=== PATIENT | female | born 1955 | race Caucasian/White ===

== ENCOUNTER 2017-12-19 13:53 | Emergency (ER) | payer OTHER, SELFPAY ==
[2017-12-19] VITALS (7 sets, daily range): BP systolic 117–145; BP diastolic 50–85; PULSE 82–99; RESP 9–19; TEMP 37.1; O2SAT 95–97
--- NOTE | 2017-12-19 14:24 | DI.REPORT_ITS ---
SYMPTOMS/DIAGNOSIS: TRANSIENT CHEST PAIN AT REHAB CHEST X-RAY, FRONTAL AND LATERAL VIEWS: The heart is normal in size. The lungs are clear. The mediastinal structures and pleura appear intact. IMPRESSION: Normal chest.
--- NOTE | 2017-12-19 14:25 | ED.GENADUL ---
Disposition Clinical Impression: Atypical chest pain Disposition: HOME Condition: Good Medical Decision Making - EKG Data -: EKG Interpreted by Me EKG shows normal: sinus rhythm 12/19/17 14:28 Sinus rhythm, rate approximately 90-100. ST segments are unremarkable - Radiology Data Radiology results: report reviewed, image reviewed - Medical Decision Making 62-year-old female presents with 20-30 seconds of anterior chest discomfort that began at approximately 11 AM during rehabilitation. It improved on its own has yet to recur. She has been recovering from right total knee arthroplasty. Differential diagnosis includes colonic gas in the transverse colon, unusual presentation myocardial infarction, atypical chest pain. Do not feel that there is significant evidence of pulmonary embolism given the very brief nature of the event. Patient placed on wire brush maker and unremarkable screening EKG obtained. Unremarkable CBC with white count 8, hematocrit 36, platelets 284, Sodium 138, potassium 3.7, chloride 101, bicarb 25, BUN 14, creatinine 0.6, unremarkable LFTs, troponin negative. Chest x-ray negative. Patient observed over approximate 2 hours time without recurrence of discomfort. Do not feel there is evidence to pursue further workup of chest pathology. She stable for discharge home and to return to her total knee replacement rehabilitation. History of Present Illness - General Chief complaint: Chest Pain Stated complaint: CHEST PAIN Time Seen by Provider: 12/19/17 13:57 Source: patient, family, RN notes reviewed Mode of arrival: wheelchair Limitations: no limitations - History of Present Illness Initial comments: Chest pain: 62-year-old female who is recovering from total knee replacement on December 11. She was at rehabilitation today and had severe leg pain due to manipulation of the therapist. She separately states that she developed 20-30 seconds of the abrupt onset of mild to moderate cramping discomfort across her lower chest. It resolved completely on its own. No shortness of breath. She denied any persistent symptoms. She has not had any other complaints. She has recently weaned off of narcotics for postoperative pain. She is not any new lower extremity pain or swelling. - Related Data Levothyroxine [Levothroid] 25 mcg PO DAILY tab-cap 11/28/17 Losartan/Hctz [Hyzaar 50-12.5] 1 each PO DAILY 11/28/17 Cholecalciferol (Vitamin D3) [Vitamin D3] 4,000 unit PO DAILY 12/06/17 Vit #108/Iron/FA [ One Tablet] 1 each PO DAILY 12/06/17 Celecoxib [Celebrex] 200 mg PO BID #60 capsule 12/14/17 Hydrocodone Bit/Acetaminophen [Hydrocodon-Acetaminophen 5-325] 1 tab PO Q6H PRN PRN #30 tablet 12/14/17 Allergies Allergy/AdvReac Type Severity Reaction Status Date / Time lisinopril AdvReac Mild COUGH Unverified 12/11/17 06:03 Review of Systems Other: 8 systems reviewed, otherwise negative Past Medical History - Past Medical History Hypertension, total knee arthroplasty right General Exam - General Limitations: no limitations General appearance: alert, in no apparent distress - Head Head exam: Present: atraumatic, normocephalic - Eye Eye exam: Present: normal apperance, PERRL - Neck Neck exam: Present: normal inspection, full ROM - Respiratory Respiratory exam: Present: normal lung sounds bilaterally. Absent: respiratory distress, chest wall tenderness - Cardiovascular Cardiovascular Exam: Present: regular rate, normal rhythm - GI/Abdominal GI/Abdominal exam: Present: soft. Absent: distended, tenderness - Extremities Exam Extremities exam: Present: normal inspection, normal capillary refill, other (Right knee with anterior vertically oriented healing surgical incision.) - Neurological Exam Neurological exam: Present: alert, oriented X3 - Psychiatric Psychiatric exam: Present: normal affect, normal mood - Skin Skin exam: Present: warm, dry, intact Course Vital Signs - 24 hr 12/19/17 14:05 Temperature 37.1 C Pulse 99 H Respiratory 12 Rate Blood Pressure 145/85 Pulse Oximetry 97
[2017-12-19] MEDS: Normal Saline 1,000 ML 150 ML IV (14:52)
[2017-12-19 14:55] LABS: Abs Immature Grans 0.05 k/cumm (0.0-0.09); Absolute Basophil Count 0.02 k/cumm (0.0-0.2); Absolute Eosinophil Count 0.14 k/cumm (0.0-0.7); Absolute Lymphocyte Count 1.86 k/cumm (1.2-3.4); Absolute Monocyte Count 0.54 k/cumm (0.11-0.7); Basophils % 0.2; Eosinophils % 1.7; HCT 36.5 % (36.0-46.0); HGB 12.3 g/dL (12.0-15.5); Immature Grans % 0.6; Lymphocytes % 23.2; Mean Corp. HGB Concentration 33.7 g/dL (32.0-36.0); Mean Corpuscular Hemoglobin 30.4 pg (27.0-33.0); Mean Corpuscular Volume 90.1 fL (80-95); Mean Platelet Volume 9.2 fL (8.0-11.0); Monocytes % 6.7; Neutrophils % 67.6; Platelet Count 284 x1000/uL (130-400); RBC 4.05 m/cumm (4.00-5.20); RBC Distribution Width 13.5 % (11.7-14.6); White Blood Cell Count 8.01 k/cumm (4.4-10.8)
[2017-12-19 15:17] LABS: ALT 47 U/L (12-78); AST 26 U/L (15-37); Albumin 3.4 g/dL (3.4-5.0); Alkaline Phosphatase 96 U/L (46-116); Anion Gap 11.3 mmol/L (3-11); BUN 14 mg/dL (7-18); Bilirubin, Total 1.1 mg/dL (0.2-1.0); CO2 25.7 mmol/L (21.0-32.0); CREATININE 0.69 mg/dL (0.55-1.02); Calcium 9.1 mg/dL (8.5-10.1); Chloride 101 mmol/L (98-107); Glucose 102 mg/dL (70-100); Magnesium 2.3 mg/dL (1.8-2.4); Potassium 3.7 mmol/L (3.5-5.1); Sodium 138 mmol/L (136-145); Total Protein 7.3 g/dL (6.4-8.2); Troponin I < 0.02 ng/mL (0.00-0.06)
== END 2017-12-19 15:58 | disposition home or self-care (01) ==
PROVIDERS: Emergency Provider Emergency Medicine; PCP Internal Medicine
DX: R07.89 Other chest pain (principal); Z96.651 Presence of right artificial knee joint; I10 Essential (primary) hypertension
CPT/HCPCS: 80053; 93005; 96360; 99285; 71046; 83735; 84484; 85025; 93010; 99284

== ENCOUNTER 2018-03-22 10:35 | Outpatient (CLI) | payer OTHER, SELFPAY ==
--- NOTE | 2018-03-22 10:28 | DI.RAD_ITS ---
SYMPTOMS/DIAGNOSIS: RIGHT ANKLE PAIN RIGHT ANKLE: There is mild generalized soft tissue swelling. The bony structures are normally mineralized. There is no evidence of a fracture or dislocation. The mortise joint is well maintained. There are mild degenerative changes involving the talonavicular and calcaneocuboid joints, nil else.
== END 2018-03-22 10:55 ==
PROVIDERS: PCP Internal Medicine; Visit Provider Physician Assistant
DX: M25.571 Pain in right ankle and joints of right foot (principal); M79.89 Other specified soft tissue disorders; M19.071 Primary osteoarthritis, right ankle and foot
CPT/HCPCS: 73610

== ENCOUNTER 2018-09-03 08:16 | Outpatient (REF) | payer OTHER, SELFPAY ==
[2018-09-03 19:42] LABS: BUN 17 mg/dL (7-18); CREATININE 0.73 mg/dL (0.55-1.02); Calcium 9.4 mg/dL (8.5-10.1); Chloride 107 mmol/L (98-107); Cholesterol 201 mg/dL (50-200); Glucose 104 mg/dL (70-100); HDL Cholesterol 46 mg/dL (40-60); LDL CHOLESTEROL 132 mg/dL (<100); Potassium 4.1 mmol/L (3.5-5.1); Sodium 142 mmol/L (136-145); TSH 2.44 uIU/mL (0.358-3.74); Triglyceride 96 mg/dL (30-150)
[2018-09-03 19:59] LABS: FREE T4 0.99 ng/dL (0.76-1.46)
[2018-09-04 17:47] LABS: T3, Total 127 ng/dl (97-169)
== END 2018-09-03 08:36 ==
LOC: NCHCN 08:16
PROVIDERS: PCP Internal Medicine; Visit Provider Nurse Practitioner Family
DX: I10 Essential (primary) hypertension (principal); E03.9 Hypothyroidism, unspecified; Z13.220 Encounter for screening for lipoid disorders
CPT/HCPCS: 80048; 80061; 83721; 84439; 84443; 84480

== ENCOUNTER 2018-09-13 00:51 | Outpatient (CLI) | payer OTHER, SELFPAY ==
--- NOTE | 2018-09-13 10:34 | DI.MAMMO_ITS ---
SYMPTOMS/DIAGNOSIS: SCREENING, Z12.39 MAMMOGRAM: Mammograms were interpreted according to the usual protocol including computer analysis with CAD system, tomosynthesis and C view imaging. The breasts are of moderate density with fairly symmetrical distribution of fibroglandular tissue. No dominant mass or clumped microcalcification is identified in either breast. Comparison with previous examination of 2003 shows no gross interval change in appearance allowing for differences in technique. CONCLUSION: No specific evidence of malignancy at this time. Routine screening examinations are suggested at yearly intervals due to the family history of breast carcinoma. Category I. Breast density Category B. MQSA ASSESSMENT OF FINDINGS: Negative. Category 1. Patient will receive a letter notifying them of these results. BI-RADS category B. There are scattered areas of fibroglandular density.
== END 2018-09-13 01:11 ==
PROVIDERS: PCP Internal Medicine; Visit Provider Nurse Practitioner Family
DX: Z12.31 Encounter for screening mammogram for malignant neoplasm of breast (principal); Z80.3 Family history of malignant neoplasm of breast
CPT/HCPCS: 77063; 77067

== ENCOUNTER 2018-10-29 06:13 | Day surgery (SDC) | payer OTHER, SELFPAY ==
[2018-10-29 06:20] VITALS: BP 135/72; PULSE 90; RESP 18; TEMP 36.7; O2SAT 98
--- NOTE | 2018-10-29 06:36 | COLE_ITS ---
Date of service: 10/29/18 Time of Service: 07:24 Colonoscopy Report Date of procedure: 10/29/18 Pre-op diagnosis general: Colon Cancer Screening Post-op diagnosis procedure note: other (Ascending colon mass, multiple polyps, diverticulosis) Procedure: Colonoscopy with bx and polypectomy Surgeon: Kellie Pisano Anesthesia proc note operative: other (General/ ASA 2/ Jimenez Sims, V[place]) Estimated blood loss (mL): 10 Pathology: other (Bx ascending mass, transverse x3, descending, sigmoid and rectal polyp) Complications: None Disposition: same day Indications: Mrs. Gastelum is a pleasant 63 year old female seen in the office for a colonoscopy. This will be her first. There is no family history of colon Cancer. Risks, benefits and complications have been reviewed. Complications include but are not limited to bleeding, pain, perforation, missed small lesion/polyp, sore throat, aspiration and adverse reaction to the medications. Questions were entertained and answered to their satisfaction and they wished to proceed. No guarantees were given or implied. Prep: Miralax/Dulcolax Procedure Start Time: 07:24 Procedure End Time: 08:34 Retraction Time: 56 minutes Findings: Ascending colon mass which was biopsied and tattooed. Multiple other polyps Rangel-diverticulosis Procedure Description: After informed consent was obtained the patient was taken to the procedure room and placed in a left decubitous position. Monitors were a pplied and a time out was done. The patients name, date of , procedure, allergies to medications and metal in their body was reviewed. The patient was then sedated. Once sedated and comfortable a rectal exam was done. External exam was normal. Internal exam revealed a normal sphincter tone and no palpable masses. The scope was then introduced and retro-flexed. No internal hemorrhoids were identified. The scope was then advanced to the cecum without difficulty. The TI and appendiceal orifice were identified. The prep was adquate. The scope was then slowly retracted over 56 minutes back into the rectum. In the ascending colon there was a mass noted. Biopsies of the mass were done with a hot snare and a hot forceps. Transverse polyps were removed x3 with hot forceps and hot snare. Descending, sigmoid and rectal polyps were removed with cold forceps. Rangel-diverticulosis was noted. The scope was removed and the patient was woken up and taken back to Same day surgery in stable condition. The patient tolerated the procedure well and there were no immediate complications. Follow up: I was unable to remove the mass safely so patient will need a Right hemicolectomy once I have the pathology results.
--- NOTE | 2018-10-29 06:36 | W.PM.DSUDISC ---
Discharge Plan Disposition Patient Disposition: HOME Condition: Good Discharge Details Reason For Visit: Colon Cancer Screening Attending Provider: Kellie Pisano Primary Care Provider: Jonatan Garza Home Meds and New Rx's Prescriptions: Continued vitamin B complex capsule 1 cap PO DAILY RF: 0 codeine-guaifenesin 10-100 mg/5 mL liquid 5 ml PO ONCE PRNRF: 0 aspirin [Adult Low Dose Aspirin] 81 mg tablet,delayed release (DR/EC) 162 mg PO DAILY RF: 0 levothyroxine 25 MCG tablet 25 mcg PO HS RF: 0 losartan-hydrochlorothiazide 1 EACH tablet 1 ea PO DAILY RF: 0 ascorbic acid (vitamin C) [Vitamin C] 1,000 mg Tablet 1 mg PO DAILY RF: 0 Whole Food Vitamin 1 tab PO DAILY RF: 0 Vitamin D3 4,000 UNIT capsule 4,000 unit PO DAILY RF: 0 Discontinued polyethylene glycol 3350 17 gram/dose powder 238 g PO ONCE Qty: 238 RF: 0 bisacodyl [Dulcolax (bisacodyl)] 5 mg tablet,delayed release (DR/EC) 5 mg PO ONCE Qty: 4 RF: 0 Discharge Instructions Instructions: Colonoscopy (DC), Diverticulosis (DC), Colorectal Polyps (GEN) Additional Instructions: Findings: Mass in the ascending colon Polyps in the transverse, descending, sigmoid colon and rectum Diverticulosis Follow up:2 weeks in the office Please call if you develop: fevers >101.5 Nausea or Vomiting Abdominal pain that is not transient DAY SURGERY UNIT POST COLONOSCOPY INSTRUCTIONS 1. Because there will be medication in your system for the next 24 hours, you may feel a little sleepy. Your coordination will be affected. Therefore: a. Do not drive or operate dangerous equipment for 24 hours. b. Do not drink alcohol beverages for 24 hours (not even beer). c. Plan to go home and rest for the day. 2. Generally there are no restrictions on your activity after a day or so has gone by, but you may feel a bit fatigued for a few days. 3 After you arrive home you may have a light meal and return to a normal diet as you can tolerate it without feeling sick to your stomach. 4. After surgery, you may feel pain or discomfort. This should be only transient, but if it persists please contact your doctor. 5. If there are any questions regarding the findings of your procedure, please feel free to contact your doctor. 6. If you are unable to contact your doctor with a problem, contact the hospital at [phone]. 7. Continue all your regular medications unless directed otherwise. I understand the above instructions and have no questions. Signature of Patient or Responsible Adult Escort Date/Time Name of Responsible Adult Escort Signature of Nurse Date/Time Referrals: Kellie Pisano MD [ [facility] STAFF PHYSICIAN] - 11/13/18 1:00 pm Activity:: Activity as Tolerated Diet:: High Fiber diet Discharge Orders Discharge Orders: Discharge Order (Routine); Ordered 10/29/18 Ordered By: Kellie Pisano DS: Diagnosis Discharge Diagnosis (1) S/P colonoscopy: Status: Acute (2) Colorectal polyps: Status: Acute (3) Diverticulosis: Status: Acute
[2018-10-29] MEDS: Lactated Ringers 1,000 ML 80 ML IV (06:47)
[2018-10-29] MEDS: Midazolam 2 MG/2 ML VIAL (07:20)
--- NOTE | 2018-10-29 07:30 | BOWEL_PTH ---
PATIENT: aMvis Gastelum LOC: [facility] U#:[id number] AGE/SX: 63/F ROOM: RE10/29/[address]: Kellie Pisano MD : 1955 BED: DIS: 10/29/2018 SPEC #: [id number] RECD: 10/29/18 12:51 STATUS: QUOC RE #: [id number] RONALDO: 10/29/18 07:[address]: Kellie Pisano DEPT: Surgical Specimen RECD BY: Lolis Bronson ENTERED: 10/29/18 12:52 SP TYPE: Bowel OTHR DR: Jonatan Garza Tissues: 1 - BIOPSY BOWEL 2 - BIOPSY BOWEL 3 - BIOPSY BOWEL 4 - BIOPSY BOWEL 5 - BIOPSY BOWEL Procedures: GROSS AND MICRO LEVEL 4 IMMUNOPEROXIDASE STAIN Comments: [id number]
[2018-10-29] MEDS: Endoscopic Tattoo 5 ML SYR IJ (07:47)
[2018-10-29 09:10] VITALS: BP 145/90; PULSE 79; RESP 18; TEMP 35.8; O2SAT 98
== END 2018-10-29 09:58 | disposition home or self-care (01) ==
PROVIDERS: PCP Internal Medicine; Visit Provider Surgery
PROC: 0DJD8ZZ Inspection of Lower Intestinal Tract, Via Natural or Artificial Opening Endoscopic (ICD-10-PCS; CPT 45378; principal; 2018-10-29 07:30)
DX: C18.2 Malignant neoplasm of ascending colon (principal); Z12.11 Encounter for screening for malignant neoplasm of colon; D12.3 Benign neoplasm of transverse colon; D12.4 Benign neoplasm of descending colon; K63.5 Polyp of colon; K62.1 Rectal polyp; K57.30 Diverticulosis of large intestine without perforation or abscess without bleeding; I10 Essential (primary) hypertension
CPT/HCPCS: 45385; 45384; 45380; 88305; 88361; J2250

== ENCOUNTER 2018-11-05 08:05 | Outpatient (CLI) | payer OTHER, SELFPAY ==
--- NOTE | 2018-11-05 12:21 | DI.CT_ITS ---
SYMPTOM/DIAGNOSIS: NEWLY DIAGNOSED COLON CANCER, ASCENDING C18.9 CT CHEST, ABDOMEN AND PELVIS: Comparison is made with chest x-ray dated 19 December 2017 Images were performed from the clavicles through the ischial tuberosities after IV and oral contrast. CHEST CT: The lungs are clear. No pulmonary nodules, adenopathy, infiltrates or effusions seen. There is mild calcification of the aortic arch and coronary arteries. The heart size is normal. A hemangioma is noted in the T-5 vertebral body. There is a mild compression fracture of the superior end plate of T-11. No destructive bony lesions are seen. IMPRESSION: No evidence of metastatic disease. ABDOMEN AND PELVIC CT: The liver, gallbladder, spleen, adrenals and pancreas are unremarkable. There are a few tiny renal cysts. No adenopathy, free air or free fluid is seen. There is diverticulosis throughout the colon, greatest in the sigmoid. The appendix appears normal. There is a mass of the mid-ascending colon measuring 1 to 1.5 cm in diameter. There is no visible stranding in the surrounding fat. There is a tiny fatty containing umbilical hernia. There is calcification along the abdominal aorta and iliac arteries but no evidence of an aneurysm. No suspicious bony lesions are identified. The patient is status post hysterectomy. The bladder is unremarkable. IMPRESSION: Small mass in the ascending colon. There is no evidence of metastatic disease.
[2018-11-05 14:15] LABS: ALT 34 U/L (12-78); AST 24 U/L (15-37); Albumin 3.8 g/dL (3.4-5.0); Alkaline Phosphatase 98 U/L (46-116); Anion Gap 12.2 mmol/L (3-11); BUN 13 mg/dL (7-18); Bilirubin, Total 0.8 mg/dL (0.2-1.0); CO2 23.8 mmol/L (21.0-32.0); CREATININE 0.68 mg/dL (0.55-1.02); Calcium 9.7 mg/dL (8.5-10.1); Chloride 103 mmol/L (98-107); Glucose 98 mg/dL (70-100); HCT 43.2 % (36.0-46.0); HGB 14.4 g/dL (12.0-15.5); Mean Corp. HGB Concentration 33.3 g/dL (32.0-36.0); Mean Corpuscular Hemoglobin 29.4 pg (27.0-33.0); Mean Corpuscular Volume 88.3 fL (80-95); Mean Platelet Volume 9.9 fL (8.0-11.0); Platelet Count 286 x1000/uL (130-400); RBC 4.89 m/cumm (4.00-5.20); RBC Distribution Width 13.8 % (11.7-14.6); Sodium 139 mmol/L (136-145); Total Protein 7.5 g/dL (6.4-8.2); White Blood Cell Count 7.91 k/cumm (4.4-10.8)
[2018-11-05] MEDS: Omnipaque 350 MG/ML 100 ML BTL IJ (15:06)
[2018-11-05] MEDS: Omnipaque 350 MG/ML 50 ML BTL IJ (15:08)
[2018-11-05] MEDS: Normal Saline Flush 10 ML SYR IVP (15:09)
[2018-11-06 09:20] LABS: Prealbumin 22 mg/dL (20-40)
[2018-11-06 10:36] LABS: CEA 0.8 ng/ml
== END 2018-11-05 08:25 ==
PROVIDERS: PCP Internal Medicine; Visit Provider Surgery
DX: C18.9 Malignant neoplasm of colon, unspecified (principal); Z12.89 Encounter for screening for malignant neoplasm of other sites; M48.54XD Collapsed vertebra, not elsewhere classified, thoracic region, subsequent encounter for fracture with routine healing; K57.30 Diverticulosis of large intestine without perforation or abscess without bleeding; K42.9 Umbilical hernia without obstruction or gangrene
CPT/HCPCS: 74177; 80053; 85027; 71260; 82378; 84134; J3490; Q9967

== ENCOUNTER 2018-11-14 06:00 | Inpatient (IN) | payer OTHER, SELFPAY ==
[2018-11-14] VITALS (19 sets, daily range): BP systolic 96–131; BP diastolic 51–79; PULSE 60–96; RESP 9–18; TEMP 36.2–37; O2SAT 95–100
--- NOTE | 2018-11-14 06:19 | ROE_ITS ---
Date of service: 11/14/18 Time of Service: 13:04 Operative Note DATE OF PROCEDURE: 11/14/18 PRE-OP DIAGNOSIS: Ascending colon Cancer POST-OP DIAGNOSIS: same PROCEDURE: Laparoscopic Right hemicolectomy SURGEON: Kellie Pisano WORKFORCE MANAGEMENT CONSULTANT: Juli Mcqueen ANESTHESIA: GETA and spinal ESTIMATED BLOOD LOSS: 75 PATHOLOGY: other (Right colon) COMPLICATIONS: None Patient was transported to: PACU Patient's condition: stable Indications: Mrs. Gastelum is a pleasant 63 year old female who was diagnosed with ascending colon cancer a few weeks ago. CT scan showed no lymphadenopathy or sig ns of metastasis. CEA was normal. Laparoscopic Right hemicolectomy was discussed with patient. Risks, benefits and complications were reviewed. Complications include but are not limited to bleeding, infection, anastamotic leak, sepsis, UTI, injury to adjacent organs, Cardiac arrest, stroke and . Questions were entertained and answered to their satisfaction and they wished to proceed. No guarantees were given or implied. Findings: Small palpable cancer. Tattoo area noted. Healthy appearing liver. Procedure Description: After informed consent was obtained the patient was taken to the operating room and a spinal anesthetic was done. She was then placed in the supine position and was placed under general anesthesia and intubated without difficulty. An OG tube was placed. A second IV was placed. Her arms were then tucked next to her. A Covarrubias catheter was placed in a standard fashion. Next her abdomen was prepped and draped in a sterile surgical fashion from the xiphoid process to the suprapubic area and from the right to the left abdomen down to the bed. At this point a timeout was done and the patient's name, date of , allergies to medications, procedure to be done, DVT prophylaxis and antibiotic given were reviewed. Fire risk was assessed. The case was reviewed and special instrumentation was not required. A small 5 mm incision was made with an 11 blade just below the umbilicus. The skin was grasped with penetrating towel clamps on either side of the inci duy and a 5 mm port was placed under direct visualization without difficulty. The abdomen was then insufflated. 3 more ports were placed, one 5 mm port was placed just above the pubic symphysis. 1 was placed between the umbilicus and the xiphoid process in the left upper quadrant area. In 11 mm port was placed just below the xiphoid process. The a sending colon was then inspected and the tattooed area was identified. The right colon was then mobilized along the white line of Toldt. Once mobilized all the way to the hepatic flexure the omentum was moved away from the ascending colon. Some attachments were noted of the omentum to the area of the tattoo. The omentum was freed from its adhesions using a laparoscopic LigaSure dissector. The terminal ileum was identified and a small opening was created with a [place] dissector and the mesentery. Using a laparoscopic stapler the terminal ileum was transected. Using the LigaSure dissector the mesentery along the ascending colon was cauterized and cut all the way around the hepatic flexure. The lesser sac was entered and opened along the transverse colon. At this point the laparoscopic instruments were removed from the abdomen as well as the camera in the abdomen was deflated. The ports were removed and a 15 centimeter incision was made from just above the umbilicus through the 11 mm port site. Dissection was done through the subcutaneous tissue with cautery down to the fascia. I then placed my finger through the port site and swept along the fascia making sure that there was no bowel and the fascia was opened with cautery. The right side of the fascia was then retracted and the ascending colon was pulled through the wound a few more adhesions of mesentery were noted and these were transected using the LigaSure. I then felt for the middle colic artery and stapled the colon off just to the right of this palpable artery. The bowel was removed from the operating table and placed in formalin. The rest of the transverse colon was inspected it looked healthy and there was good blood supply to the stapled area. I noted some small amount of omentum that was adhered close to where the anastomosis was going to be and it was dissected away with the LigaSure. The stapled small bowel was then brought out through this incision and secured in a [id number] fashion with the transverse colon with 2 silk sutures. A small enterotomy was made on the small bowel as well as the transverse colon and using an 80 mm straight stapler a anastomosis was created between the 2 pieces of bowel. The enterotomy was c losed in 2 layers. The first layer was with 2-0 Vicryl second layer was with 3- 0 silk. The staple line was then buried with 2-0 silk pop-off sutures. The mesenteric defect was closed using 2-0 Vicryl suture. The bowel was then gently placed back into the abdominal cavity making sure that the mesentery was not twisted. The omentum was placed over the anastomosis. An instrument, sponge and needle count was done and was correct at this point. At this point the abdomen was irrigated with 2 L of warm normal saline. The fluid was suctioned back out until clear. The fascia was then grasped with [place]'s. The fascia was closed with two #1 Vicryl sutures in a running fashion. Two 5 mm ports were then placed back through the old incisions into the abdomen and the abdomen was insufflated. The camera was placed and a little bit of fluid was suctioned out of the pelvis. The bowel was inspected and looked normal and there was good peristalsis. The liver was inspected and looked normal. The gallbladder looked normal. The omentum was gently swept away and the anastomosis was noted in the right upper quadrant area. The mesentery did not look twisted. The anastomosis looked pink. The omentum was placed back over the anastomosis. At this point the camera was removed and the 2 5 mm ports were removed. A 5 mm incisions were closed with 4-0 Vicryl. The the subcutaneous tissue of the midline incision was reapproximated using 3-0 Vicryl. Prior to this Exparel was injected along the fascia. Once the subcutaneous tissue was reapproximated the dermis was closed with 4-0 Vicryl running suture. At this point the abdomen was cleaned and dried. Mastisol Steri-Strips were applied to all incisions. A second instrument, needle and sponge count was done and was correct. The OG tube was removed and the patient was woken up extubated and taken back to recovery in stable condition. There were no immediate complications.
[2018-11-14] MEDS: Celecoxib 200 MG CAP PO (06:30)
[2018-11-14] MEDS: ALVIMOPAN 12 MG CAP PO (06:30)
[2018-11-14] MEDS: Acetaminophen 500 MG TAB 1000 MG PO (06:30)
[2018-11-14] MEDS: Gabapentin 300 MG CAP PO (06:30)
[2018-11-14] MEDS: Normal Saline 1,000 ML 80 ML IV (06:53)
[2018-11-14] MEDS: fentaNYL 100 MCG/2 ML VIAL 15 MCG EP (07:35)
[2018-11-14] MEDS: Bupivacaine 0.25% Pres-Free 10 ML VIAL EP (07:35)
[2018-11-14] MEDS: Lactated Ringers 1,000 ML 30 ML IV (07:55)
[2018-11-14] MEDS: AMPICILLIN/SULBACTAM 3 GM in Normal Saline 100 ML IVPB (07:55)
--- NOTE | 2018-11-14 10:11 | BOWEL_PTH ---
PATIENT: Mavis Gastelum LOC: U#:[id number] AGE/SX: 63/F ROOM: 205 RE11/14/[address]: Kellie Pisano MD : 1955 BED: A DIS: 11/17/2018 SPEC #: [id number] RECD: 11/14/18 13:01 STATUS: QUOC REQ #: [id number] RONALDO: 11/14/18 10:[address]: Kellie Pisano DEPT: Surgical Specimen RECD BY: Gianluca Tate ENTERED: 11/14/18 13:04 SP TYPE: Bowel OTHR DR: Jonatan Garza Tissues: 1 - OMENTAL/OMENTUM BIOPSY/RESECTION Procedures: GROSS AND MICRO LEVEL 6 Comments: [id number]
[2018-11-14] MEDS: Pantoprazole 40 MG VIAL IVP (14:01)
[2018-11-14] MEDS: Normal Saline 10 ML VIAL IJ (14:02)
[2018-11-14] MEDS: Lactated Ringers 1,000 ML 80 ML IV ×2 (14:11→22:56)
[2018-11-14] MEDS: Acetaminophen 325 MG TAB 650 MG PO (15:00)
--- NOTE | 2018-11-14 15:37 | W.PM.PROGNOT ---
Date of Service Date of service: 11/14/18 Time of Service: 15:38 Assessment and Plan (1) S/P right hemicolectomy: Current visit: Yes Status: Acute A\\ Doing well a few hours post surgery Has not urinated yet P\\ Continue current care Bladder scan if no urine by tonight. Did have lam in in the OR Dr. Palacios will see patient tomorrow Subjective Interval history since last seen: Doing well. Sipping on rosa maria carol. Has some pain but manageable. Using her ISP. Exam GI Inspection: incision (dressings are clean) Objective Objective Clinical Data: Vital Signs Temperature 97.3 F L 11/14/18 15:00 Temperature Source Temporal Artery Scan 11/14/18 15:00 Pulse 73 11/14/18 15:00 Pulse Rhythm Regular 11/14/18 13:45 Respiratory Rate 18 11/14/18 15:00 Respiratory Effort 11/14/18 13:45 Respiratory Depth Normal 11/14/18 13:45 Respiratory Pattern Normal 11/14/18 13:45 Blood Pressure 119/75 11/14/18 15:00 Pulse Oximetry 98 11/14/18 15:00 Respiratory End-tidal CO2 31 11/14/18 13:10 Oxygen Delivery Method Room Air 11/14/18 15:00 Oxygen Flow Rate 0 11/14/18 15:00 Pain Level 2 11/14/18 15:00 Intake & Output 11/13/18 11/14/18 11/14/18 23:59 11:59 23:59 Intake Total 1100 / 2100 1000 / 2100 Output Total 225 / 225 Balance 875 / 1875 1000 / 1875 Weight 234 lb 2.095 oz Intake: IV 1100 / 2100 1000 / 2100 Output: Urine 150 / 150 Estimated Blood Loss 75 / 75 Other: Urine Color Straw Urine Appearance Clear Emesis Description None Laboratory Results Patient ABO/Rh A Positive 11/14/18 06:30 Antibody Screen Negative 11/14/18 06:30
[2018-11-14] MEDS: Enoxaparin 40 MG/0.4 ML SYR SC (20:30)
[2018-11-14] MEDS: Levothyroxine 25 MCG TAB PO (22:55)
[2018-11-15 04:05] VITALS: BP 125/75; PULSE 61; RESP 17; TEMP 36.7; O2SAT 98
[2018-11-15 07:15] LABS: Abs Immature Grans 0.02 k/cumm (0.0-0.09); Absolute Eosinophil Count 0.01 k/cumm (0.0-0.7); Absolute Lymphocyte Count 1.06 k/cumm (1.2-3.4); Absolute Monocyte Count 0.59 k/cumm (0.11-0.7); Absolute Neutrophil Count 7.07 k/cumm (1.2-6.7); Eosinophils % 0.1; HCT 36.5 % (36.0-46.0); HGB 11.7 g/dL (12.0-15.5); Immature Grans % 0.2; Lymphocytes % 12.1; Mean Corp. HGB Concentration 32.1 g/dL (32.0-36.0); Mean Corpuscular Volume 90.3 fL (80-95); Mean Platelet Volume 10.3 fL (8.0-11.0); Monocytes % 6.7; Neutrophils % 80.9; Platelet Count 213 x1000/uL (130-400); RBC 4.04 m/cumm (4.00-5.20); RBC Distribution Width 14.3 % (11.7-14.6); White Blood Cell Count 8.75 k/cumm (4.4-10.8)
[2018-11-15 07:25] VITALS: BP 119/74; PULSE 84; RESP 18; TEMP 36.9; O2SAT 96
[2018-11-15 07:30] LABS: ALT 31 U/L (12-78); AST 17 U/L (15-37); Albumin 2.9 g/dL (3.4-5.0); Alkaline Phosphatase 77 U/L (46-116); Anion Gap 9.6 mmol/L (3-11); BUN 15 mg/dL (7-18); Bilirubin, Total 0.7 mg/dL (0.2-1.0); CO2 25.4 mmol/L (21.0-32.0); CREATININE 0.75 mg/dL (0.55-1.02); Calcium 8.5 mg/dL (8.5-10.1); Chloride 105 mmol/L (98-107); Glucose 98 mg/dL (70-100); Sodium 140 mmol/L (136-145); Total Protein 5.7 g/dL (6.4-8.2)
[2018-11-15] MEDS: Ketorolac 30 MG/ML VIAL IVP ×3 (07:51→20:47)
[2018-11-15] MEDS: hydroCHLOROthiazide 12.5 MG TAB PO (07:51)
[2018-11-15] MEDS: Losartan 50 MG TAB PO (07:51)
[2018-11-15] MEDS: Normal Saline Flush 10 ML SYR IVP ×3 (07:52→20:47)
--- NOTE | 2018-11-15 10:26 | PDOC.CMIN ---
- If Service Date Differs Date of service: 11/15/18 Time of Service: 10:26 Care Management Initial Assess REASON FOR HOSPITALIZATION:: Mavis was admitted status post right hemicolectomy for colon cancer. PAST MEDICAL HISTORY/PAST SURGICAL HISTORY:: Status post right hemicoloectomy, diverticulosis, colon polyps PREVIOUS FUNCTIONAL STATUS/SOCIAL/FAMILY SUPPORTS:: Mavis lives with her spouse and her youngest daughter in [place], [place]. 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 She describes a supportive family all that help her at home if needed. She is independent with transportation and ADL's and uses no ambulatory aids. CURRENT FUNCTIONAL STATUS:: Mavis is engaged with CM during assessment her daughters Juli and are present in the room. Mavis states it is okay to complete assessment while they are present. Mavis states she has received really good care, she has had minimal discomfort. She is ambulating and feels that she will be ready to be discharged on Monday. She reports good support at home and does not feel she will need any additional supports. ADVANCE DIRECTIVES:: None on file CM provided the paperwork she will review and decide if she wants to complete while inpatient. Has patient been provided with information about the portal?: Yes Did the patient sign up for the portal?: No CODE STATUS:: Full Code INSURANCE COVERAGE / FINANCIAL ISSUES:: [facility] plan and Finacial assistance 47% CURRENT HOME/COMMUNITY SERVICES/EQUIPMENT:: None at this time PRIMARY CARE PHYSICIAN:: [facility] POTENTIAL DISCHARGE NEEDS:: Follow up with surgical provider as directed PATIENT/FAMILY EDUCATION NEEDS:: Discharge education, limitations and follow up plan of care including ask me three and self management. ANTICIPATED BARRIERS TO DISCHARGE:: None TRANSPORTATION:: Via private car with daughter Juli at time of discharge. PLAN:: Mavis reamins acute today, she feels she is recovering well. Anticipate no additional services at time of discharge. CM to continue to provide support and assist with advance directives if she chooses to complete while inpatient.
--- NOTE | 2018-11-15 10:29 | INITIAL_ITS ---
- If Service Date Differs Date of service: 11/15/18 Time of Service: 10:26 Care Management Initial Assess REASON FOR HOSPITALIZATION:: Mavis was admitted status post right hemicolectomy for colon cancer. PAST MEDICAL HISTORY/PAST SURGICAL HISTORY:: Status post right hemicoloectomy, diverticulosis, colon polyps PREVIOUS FUNCTIONAL STATUS/SOCIAL/FAMILY SUPPORTS:: Mavis lives with her spouse and her youngest daughter in [place], [place]. 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 She describes a supportive family all that help her at home if needed. She is independent with transportation and ADL's and uses no ambula tory aids. CURRENT FUNCTIONAL STATUS:: Mavis is engaged with CM during assessment her daughters Juli and are present in the room. Mavis states it is okay to complete assessment while they are present. Mavis states she has received really good care, she has had minimal discomfort. She is ambulating and feels that she will be ready to be discharged on Monday. She reports good support at home and does not feel she will need any additional supports. ADVANCE DIRECTIVES:: None on file CM provided the paperwork she will review and decide if she wants to complete while inpatient. Has patient been provided with information about the portal?: Yes Did the patient sign up for the portal?: No CODE STATUS:: Full Code INSURANCE COVERAGE / FINANCIAL ISSUES:: [facility] and Finacial assistance 47% CURRENT HOME/COMMUNITY SERVICES/EQUIPMENT:: None at this time PRIMARY CARE PHYSICIAN:: [facility] POTENTIAL DISCHARGE NEEDS:: Follow up with surgical provider as directed PATIENT/FAMILY EDUCATION NEEDS:: Discharge education, limitations and follow up plan of care including ask me three and self management. ANTICIPATED BARRIERS TO DISCHARGE:: None TRANSPORTATION:: Via private car with daughter Juli at time of discharge. PLAN:: Mavis reamins acute today, she feels she is recovering well. Anticipate no additional services at time of discharge. CM to continue to provide support and assist with advance directives if she chooses to complete while inpatient.
--- NOTE | 2018-11-15 10:43 | W.PM.PROGNOT ---
Date of Service Date of service: 11/15/18 Time of Service: 10:43 Assessment and Plan (1) S/P right hemicolectomy: Current visit: Yes Status: Acute She is doing very well Will heplock IV due to good PO intake Patient prefers to stay on clears for now Labs look good Subjective Interval history since last seen: She is doing very well Minimal pain Tolerating clears Passing flatus and had small liquid stool Ambulating Exam Narrative Exam Narrative: No distress Lungs CTA Heart RRR Abdomen soft, dressing clean Objective Objective Clinical Data: Abnormal lab results 11/15/18 11/15/18 Range/Units 06:04 06:04 Hgb 11.7 L (12.0-15.5) g/dL Absolute Neutrophils 7.07 H (1.2-6.7) k/cumm Absolute Lymphocytes 1.06 L (1.2-3.4) k/cumm Total Protein 5.7 L (6.4-8.2) g/dL Albumin 2.9 L (3.4-5.0) g/dL Vital Signs Temperature 98.4 F 11/15/18 07:25 Temperature Source Tympanic 11/15/18 07:25 Pulse 84 11/15/18 07:25 Pulse Rhythm Regular 11/15/18 08:14 Respiratory Rate 18 11/15/18 07:25 Respiratory Effort Non-Labored 11/15/18 08:14 Respiratory Depth Normal 11/15/18 08:14 Respiratory Pattern Normal 11/15/18 08:14 Blood Pressure 119/74 11/15/18 07:25 Pulse Oximetry 96 11/15/18 07:25 Respiratory End-tidal CO2 31 11/14/18 13:10 Oxygen Delivery Method Room Air 11/15/18 07:25 Oxygen Flow Rate 0 11/15/18 07:25 Pain Level 1 11/15/18 07:51 Comment 11/14/18 20:07 Intake & Output 11/14/18 11/14/18 11/15/18 11:59 23:59 11:59 Intake Total 1100 / 3520 2420 / 3520 300 / 300 Output Total 225 / 600 375 / 600 1500 / 1500 Balance 875 / 2920 2045 / 2920 -1200 / -1200 Weight 234 lb 2.095 oz Intake: IV 1100 / 2800 1700 / 2800 Oral 720 / 720 300 / 300 Output: Urine 150 / 525 375 / 525 1500 / 1500 Estimated Blood Loss 75 / 75 Other: Urine Color Straw Dark [place] Yellow Urine Appearance Clear Clear Stool Size Small Stool Characteristics Soft Brown Emesis Description None Voiding Methods Toilet Toilet Laboratory Results WBC 8.75 k/cumm (4.4-10.8) 11/15/18 06:04 RBC 4.04 m/cumm (4.00-5.20) 11/15/18 06:04 Hgb 11.7 g/dL (12.0-15.5) L 11/15/18 06:04 Hct 36.5 % (36.0-46.0) 11/15/18 06:04 MCV 90.3 fL (80-95) 11/15/18 06:04 MCH 29.0 pg (27.0-33.0) 11/15/18 06:04 MCHC 32.1 g/dL (32.0-36.0) 11/15/18 06:04 RDW 14.3 % (11.7-14.6) 11/15/18 06:04 Plt Count 213 x1000/uL (130-400) 11/15/18 06:04 MPV 10.3 fL (8.0-11.0) 11/15/18 06:04 Immature Gran % 0.2 11/15/18 06:04 Neutrophils % 80.9 11/15/18 06:04 Lymphocytes % 12.1 11/15/18 06:04 Monocytes % 6.7 11/15/18 06:04 Eosinophils % 0.1 11/15/18 06:04 Basophils % 0.0 11/15/18 06:04 Absolute Neutrophils 7.07 k/cumm (1.2-6.7) H 11/15/18 06:04 Absolute Lymphocytes 1.06 k/cumm (1.2-3.4) L 11/15/18 06:04 Absolute Monocytes 0.59 k/cumm (0.11-0.7) 11/15/18 06:04 Absolute Eosinophils 0.01 k/cumm (0.0-0.7) 11/15/18 06:04 Absolute Basophils 0.00 k/cumm (0.0-0.2) 11/15/18 06:04 Sodium 140 mmol/L (136-145) 11/15/18 06:04 Potassium 4.0 mmol/L (3.5-5.1) 11/15/18 06:04 Chloride 105 mmol/L (98-107) 11/15/18 06:04 Carbon Dioxide 25.4 mmol/L (21.0-32.0) 11/15/18 06:04 Anion Gap 9.6 mmol/L (3-11) 11/15/18 06:04 BUN 15 mg/dL (7-18) 11/15/18 06:04 Creatinine 0.75 mg/dL (0.55-1.02) 11/15/18 06:04 Estimated GFR/1.73 m2 >= 60.00 (mL/min/1.73m2) 11/15/18 06:04 Glucose 98 mg/dL (70-100) 11/15/18 06:04 Calcium 8.5 mg/dL (8.5-10.1) 11/15/18 06:04 Magnesium 2.0 mg/dL (1.8-2.4) 11/15/18 06:04 Total Bilirubin 0.7 mg/dL (0.2-1.0) 11/15/18 06:04 AST 17 U/L (15-37) 11/15/18 06:04 ALT 31 U/L (12-78) 11/15/18 06:04 Alkaline Phosphatase 77 U/L (46-116) 11/15/18 06:04 Total Protein 5.7 g/dL (6.4-8.2) L 11/15/18 06:04 Albumin 2.9 g/dL (3.4-5.0) L 11/15/18 06:04 Patient ABO/Rh A Positive 11/14/18 06:30 Antibody Screen Negative 11/14/18 06:30
[2018-11-15 11:25] VITALS: BP 100/59; PULSE 69; RESP 18; TEMP 37; O2SAT 97
--- NOTE | 2018-11-15 11:27 | CHAPLAIN ---
Mavis had two visitor with her when I stopped in. She was sitting up in her recliner. I explained my role and let her know that dental nurse support is available at any time. Mavis was pleasant and not interested in a longer visit at this time.
[2018-11-15] MEDS: Pantoprazole 40 MG VIAL IVP (14:02)
[2018-11-15 15:23] VITALS: BP 111/68; PULSE 65; RESP 20; TEMP 37.1; O2SAT 96
[2018-11-15 19:30] VITALS: BP 138/78; PULSE 63; RESP 16; TEMP 36.4; O2SAT 97
[2018-11-15] MEDS: Levothyroxine 25 MCG TAB PO (21:06)
[2018-11-15] MEDS: Enoxaparin 40 MG/0.4 ML SYR SC (21:06)
[2018-11-15 23:15] VITALS: BP 126/69; PULSE 72; RESP 18; TEMP 36.5; O2SAT 96
[2018-11-16] VITALS (7 sets, daily range): BP systolic 115–144; BP diastolic 57–84; PULSE 68–78; RESP 17–19; TEMP 36.4–36.7; O2SAT 94–97
[2018-11-16] MEDS: Normal Saline Flush 10 ML SYR IVP ×3 (02:29→14:37)
[2018-11-16] MEDS: Ketorolac 30 MG/ML VIAL IVP ×2 (02:29→08:15)
[2018-11-16] MEDS: Losartan 50 MG TAB PO (08:14)
[2018-11-16] MEDS: hydroCHLOROthiazide 12.5 MG TAB PO (08:14)
--- NOTE | 2018-11-16 10:04 | PDOC.CMPRO ---
Care Management Progress Note S/O-Met with Mavis today. She continues recovery from surgery, diet is advanced. MD anticipates possible d/c tomorrow. A-63 yo woman admitted s/p R hemicolectomy. P-d/c home as per MD, no services anticipated. She will follow-up with surgeon as directed.
--- NOTE | 2018-11-16 11:50 | W.PM.PROGNOT ---
Date of Service Date of service: 11/16/18 Time of Service: 11:50 Assessment and Plan (1) S/P right hemicolectomy: Current visit: Yes Status: Acute A// Incision site is healing well. Steri-strips in place with mild ecchymosis. No erythema or induration. No signs of infection noted. Mild abdominal tenderness with palpation. Tolerated soft diet this morning for breakfast. (+) BMs. She may take showers. Encouraged her to continue ambulating in the hallway as tolerated. P// Possible D/C home tomorrow if tolerating soft diet. Subjective Interval history since last seen: I had yogurt and a little scrambled eggs for breakfast. (+) BMs this morning of liquid stool. Reports her abdomen feels more firm today and is sore. Denies any nausea or vomiting. Exam Const General: cooperative, healthy appearing and comfortable Orientation: alert and oriented x3 Resp Effort & Inspection: normal respiratory effort, no audible wheezes and no cough Auscultation: clear to auscultation bilaterally Cardio Rate: regular rate Rhythm: regular rhythm Heart Sounds: S1 normal, S2 normal and no murmurs GI Inspection: normal to inspection and incision (Midline. ) Palpation: soft, no guarding and tender Auscultation: normal bowel sounds Objective Objective Clinical Data: Vital Signs Temperature 36.7 C 11/16/18 07:19 Temperature Source Tympanic 11/16/18 07:19 Pulse 68 11/16/18 07:19 Pulse Rhythm Regular 11/16/18 09:28 Respiratory Rate 17 11/16/18 07:19 Respiratory Effort Non-Labored 11/16/18 09:28 Respiratory Depth Normal 11/16/18 09:28 Respiratory Pattern Normal 11/16/18 09:28 Blood Pressure 130/57 L 11/16/18 07:19 Pulse Oximetry 97 11/16/18 07:19 Respiratory End-tidal CO2 31 11/14/18 13:10 Oxygen Delivery Method Room Air 11/16/18 07:19 Oxygen Flow Rate 0 11/16/18 07:19 Pain Level 2 11/16/18 09:24 Comment 11/14/18 20:07 Intake & Output 11/15/18 11/16/18 11/16/18 18:59 06:59 18:59 Intake Total 3030.667 / 3440.667 410 / 3440.667 470 / 470 Output Total 1500 / 2200 700 / 2200 Balance 1530.667 / 1240.667 -290 / 1240.667 470 / 470 Intake: IV 950.667 / 960.667 10 / 960.667 Oral 2080 / 2480 400 / 2480 450 / 450 Output: Urine 1500 / 2200 700 / 2200 Other: Urine Color Yellow Yellow Urine Appearance Clear Clear Urine Odor Normal Comment pt voiding ad ron in toilet; urine not assessed at this time. pt denies issues at this time Stool Size Moderate Moderate Large Stool Characteristics Soft Soft Soft Liquid Liquid Brown Voiding Methods Toilet Toilet Laboratory Results WBC 8.75 k/cumm (4.4-10.8) 11/15/18 06:04 RBC 4.04 m/cumm (4.00-5.20) 11/15/18 06:04 Hgb 11.7 g/dL (12.0-15.5) L 11/15/18 06:04 Hct 36.5 % (36.0-46.0) 11/15/18 06:04 MCV 90.3 fL (80-95) 11/15/18 06:04 MCH 29.0 pg (27.0-33.0) 11/15/18 06:04 MCHC 32.1 g/dL (32.0-36.0) 11/15/18 06:04 RDW 14.3 % (11.7-14.6) 11/15/18 06:04 Plt Count 213 x1000/uL (130-400) 11/15/18 06:04 MPV 10.3 fL (8.0-11.0) 11/15/18 06:04 Immature Gran % 0.2 11/15/18 06:04 Neutrophils % 80.9 11/15/18 06:04 Lymphocytes % 12.1 11/15/18 06:04 Monocytes % 6.7 11/15/18 06:04 Eosinophils % 0.1 11/15/18 06:04 Basophils % 0.0 11/15/18 06:04 Absolute Neutrophils 7.07 k/cumm (1.2-6.7) H 11/15/18 06:04 Absolute Lymphocytes 1.06 k/cumm (1.2-3.4) L 11/15/18 06:04 Absolute Monocytes 0.59 k/cumm (0.11-0.7) 11/15/18 06:04 Absolute Eosinophils 0.01 k/cumm (0.0-0.7) 11/15/18 06:04 Absolute Basophils 0.00 k/cumm (0.0-0.2) 11/15/18 06:04 Sodium 140 mmol/L (136-145) 11/15/18 06:04 Potassium 4.0 mmol/L (3.5-5.1) 11/15/18 06:04 Chloride 105 mmol/L (98-107) 11/15/18 06:04 Carbon Dioxide 25.4 mmol/L (21.0-32.0) 11/15/18 06:04 Anion Gap 9.6 mmol/L (3-11) 11/15/18 06:04 BUN 15 mg/dL (7-18) 11/15/18 06:04 Creatinine 0.75 mg/dL (0.55-1.02) 11/15/18 06:04 Estimated GFR/1.73 m2 >= 60.00 (mL/min/1.73m2) 11/15/18 06:04 Glucose 98 mg/dL (70-100) 11/15/18 06:04 Calcium 8.5 mg/dL (8.5-10.1) 11/15/18 06:04 Magnesium 2.0 mg/dL (1.8-2.4) 11/15/18 06:04 Total Bilirubin 0.7 mg/dL (0.2-1.0) 11/15/18 06:04 AST 17 U/L (15-37) 11/15/18 06:04 ALT 31 U/L (12-78) 11/15/18 06:04 Alkaline Phosphatase 77 U/L (46-116) 11/15/18 06:04 Total Protein 5.7 g/dL (6.4-8.2) L 11/15/18 06:04 Albumin 2.9 g/dL (3.4-5.0) L 11/15/18 06:04 Patient ABO/Rh A Positive 11/14/18 06:30 Antibody Screen Negative 11/14/18 06:30
--- NOTE | 2018-11-16 12:16 | PHARADMIT ---
Admission Pharmacy Clinical Review (R) COLON CANCER Code Status Full Code Current Weight Wgt-106.2 kg Renally Cleared and Narrow Therapeutic Index Meds CrCl~ 70.9 L/min Meds-OK QTc Value / Action Taken None current BP Control, Fever BP-130.57 Tmax-36.7C Electrolytes reviewed Na- 140 K+4.0 Mag-2.0 DVT Prophylaxis Lovenox 40mg Opiate Usage / Scheduled Bowel Regimen Ordered Yes No Plt/SCr for Heparin / Enoxaparin Plts-218 SCr-0.75 INR for Warfarin NA H/H stable, WBC/Bands H&H- 11.7/36.5 WBC- 8.755 Antibiotic appropriateness NONE Cultures and Sensitivities NONE Surgical ABX d/c within 24 hr NA DM control / Insulin Dosing BG-98 Heart Failure (Check EF%) (ARJUN's, B-Block, Diuretics) HCTZ, Losartan IV to PO Switch No Home Meds Reviewed Yes Home Meds Not Ordered VitC, Flagyl, Neomycin, Mralax, VirD, B-complex, DailyVit Comments
[2018-11-16] MEDS: Acetaminophen 325 MG TAB 650 MG PO ×2 (14:37→19:31)
[2018-11-16] MEDS: Pantoprazole 40 MG VIAL IVP (14:38)
[2018-11-16] MEDS: Lactobacillus Acidophilus CAP 1 CAP PO (19:31)
[2018-11-16] MEDS: Enoxaparin 40 MG/0.4 ML SYR SC (19:32)
[2018-11-16] MEDS: Levothyroxine 25 MCG TAB PO (22:01)
[2018-11-16] MEDS: Ibuprofen 400 MG TAB PO (22:57)
[2018-11-17] MEDS: Ibuprofen 400 MG TAB PO ×2 (05:03→11:08)
[2018-11-17 07:11] VITALS: BP 143/78; PULSE 96; RESP 19; TEMP 36.2; O2SAT 96
[2018-11-17] MEDS: hydroCHLOROthiazide 12.5 MG TAB PO (09:34)
[2018-11-17] MEDS: Pantoprazole 20 MG TABCR PO (09:34)
[2018-11-17] MEDS: Lactobacillus Acidophilus CAP 1 CAP PO (09:34)
[2018-11-17] MEDS: Losartan 50 MG TAB PO (09:34)
--- NOTE | 2018-11-17 09:57 | W.PM.PROGNOT ---
Date of Service Date of service: 11/17/18 Time of Service: 09:57 Assessment and Plan (1) S/P right hemicolectomy: Current visit: Yes Status: Acute A\\ POD #3 doing well. Eating P\\ D/C home Subjective Interval history since last seen: Mrs. Gastelum is doing well. No complaints. No pain. Eating a soft diet. No N/V Exam HENMT Head: normocephalic and atraumatic Resp Effort & Inspection: normal respiratory effort Auscultation: clear to auscultation bilaterally Cardio Rate: regular rate Rhythm: regular rhythm Heart Sounds: no gallops, no murmurs and no rubs GI Inspection: normal to inspection and incision (c/d/i) Palpation: soft and no hepatosplenomegaly Auscultation: normal bowel sounds Objective Objective Clinical Data: Vital Signs Temperature 97.2 F L 11/17/18 07:11 Temperature Source Tympanic 11/17/18 07:11 Pulse 96 H 11/17/18 07:11 Pulse Rhythm Regular 11/16/18 22:59 Respiratory Rate 19 11/17/18 07:11 Respiratory Effort Non-Labored 11/16/18 22:59 Respiratory Depth Normal 11/16/18 22:59 Respiratory Pattern Normal 11/16/18 22:59 Blood Pressure 143/78 H 11/17/18 07:11 Pulse Oximetry 96 11/17/18 07:11 Respiratory End-tidal CO2 31 11/14/18 13:10 Oxygen Delivery Method Room Air 11/17/18 07:11 Oxygen Flow Rate 0 11/17/18 07:11 Pain Level 0 11/17/18 06:03 Comment 11/14/18 20:07 Intake & Output 11/16/18 11/16/18 11/17/18 11:59 23:59 11:59 Intake Total 870 / 1130 260 / 1130 310 / 310 Output Total 400 / 650 250 / 650 Balance 470 / 480 10 / 480 310 / 310 Intake: IV 20 40 10 10 Oral 850 / 1090 240 / 1090 300 / 300 Output: Urine 400 / 650 250 / 650 Other: Urine Color Yellow Yellow Urine Appearance Clear Clear Urine Odor Normal Normal Comment pt voiding ad ron in toilet; urine not assessed at this time. pt denies issues at this time Patient up voiding independantly Stool Size Large Small Stool Characteristics Soft Liquid Liquid Brown Voiding Methods Toilet Toilet Toilet Laboratory Results WBC 8.75 k/cumm (4.4-10.8) 11/15/18 06:04 RBC 4.04 m/cumm (4.00-5.20) 11/15/18 06:04 Hgb 11.7 g/dL (12.0-15.5) L 11/15/18 06:04 Hct 36.5 % (36.0-46.0) 11/15/18 06:04 MCV 90.3 fL (80-95) 11/15/18 06:04 MCH 29.0 pg (27.0-33.0) 11/15/18 06:04 MCHC 32.1 g/dL (32.0-36.0) 11/15/18 06:04 RDW 14.3 % (11.7-14.6) 11/15/18 06:04 Plt Count 213 x1000/uL (130-400) 11/15/18 06:04 MPV 10.3 fL (8.0-11.0) 11/15/18 06:04 Immature Gran % 0.2 11/15/18 06:04 Neutrophils % 80.9 11/15/18 06:04 Lymphocytes % 12.1 11/15/18 06:04 Monocytes % 6.7 11/15/18 06:04 Eosinophils % 0.1 11/15/18 06:04 Basophils % 0.0 11/15/18 06:04 Absolute Neutrophils 7.07 k/cumm (1.2-6.7) H 11/15/18 06:04 Absolute Lymphocytes 1.06 k/cumm (1.2-3.4) L 11/15/18 06:04 Absolute Monocytes 0.59 k/cumm (0.11-0.7) 11/15/18 06:04 Absolute Eosinophils 0.01 k/cumm (0.0-0.7) 11/15/18 06:04 Absolute Basophils 0.00 k/cumm (0.0-0.2) 11/15/18 06:04 Sodium 140 mmol/L (136-145) 11/15/18 06:04 Potassium 4.0 mmol/L (3.5-5.1) 11/15/18 06:04 Chloride 105 mmol/L (98-107) 11/15/18 06:04 Carbon Dioxide 25.4 mmol/L (21.0-32.0) 11/15/18 06:04 Anion Gap 9.6 mmol/L (3-11) 11/15/18 06:04 BUN 15 mg/dL (7-18) 11/15/18 06:04 Creatinine 0.75 mg/dL (0.55-1.02) 11/15/18 06:04 Estimated GFR/1.73 m2 >= 60.00 (mL/min/1.73m2) 11/15/18 06:04 Glucose 98 mg/dL (70-100) 11/15/18 06:04 Calcium 8.5 mg/dL (8.5-10.1) 11/15/18 06:04 Magnesium 2.0 mg/dL (1.8-2.4) 11/15/18 06:04 Total Bilirubin 0.7 mg/dL (0.2-1.0) 11/15/18 06:04 AST 17 U/L (15-37) 11/15/18 06:04 ALT 31 U/L (12-78) 11/15/18 06:04 Alkaline Phosphatase 77 U/L (46-116) 11/15/18 06:04 Total Protein 5.7 g/dL (6.4-8.2) L 11/15/18 06:04 Albumin 2.9 g/dL (3.4-5.0) L 11/15/18 06:04 Patient ABO/Rh A Positive 11/14/18 06:30 Antibody Screen Negative 11/14/18 06:30
--- NOTE | 2018-11-17 10:06 | DSE_ITS ---
Date of service: 11/17/18 Time of Service: 10:04 DS: Diagnosis Discharge Diagnosis (1) S/P right hemicolectomy: Status: Acute (2) Primary adenocarcinoma of ascending colon: Status: Acute Discharge Plan Disposition Patient Disposition: HOME Condition: Good Discharge Details Reason For Visit: (R) COLON CA Admit Date/Time: 11/14/18 06:00 Admit Provider: Kellie Pisano Attending Provider: Kellie Pisano Primary Care Provider: Jonatan Garza [place] Hospital Course Hospital Course: Mrs. Gastelum is a pleasant 63 year old female who unfortunately was recently diagnosed with colon cancer at her [address]st [address] scan did not show enlarged lymph nodes or distance mets. She underwent a Laparoscopic Right Hemicolectomy on 11/14/18. Patient was on clear liquids the night of surgery. By POD#2 she was started on a soft diet which she tolerated. She has had multiple BM's. Abdomen is soft and incision is c/d/i. Patient is discharged home on a healthy high protein diet. Home Meds and New Rx's Prescriptions: New acetaminophen [Tylenol 8 Hour] 650 mg tablet extended release 650 mg PO Q6H PRN PRN (Reason: fever or pain) Qty: 30 RF: 0 ibuprofen 600 mg tablet 600 mg PO QID PRN (Reason: fever or pain) Qty: 30 RF: 0 Continued vitamin B complex capsule 1 cap PO DAILY RF: 0 levothyroxine 25 MCG tablet 25 mcg PO HS RF: 0 ascorbic acid (vitamin C) [Vitamin C] 1,000 mg Tablet 1 mg PO DAILY RF: 0 Whole Food Vitamin 1 tab PO DAILY RF: 0 Vitamin D3 4,000 UNIT capsule 4,000 unit PO DAILY RF: 0 losartan-hydrochlorothiazide 50-12.5 mg Tablet 1 tab PO DAILY RF: 0 Discontinued bisacodyl [Dulcolax (bisacodyl)] 5 mg tablet,delayed release (DR/EC) 5 mg PO ONCE Qty: 8 RF: 0 polyethylene glycol 3350 17 gram powder in packet 255 g PO DAILY Qty: 15 RF: 0 ondansetron HCl [Zofran] 8 mg tablet 8 mg PO BID PRN (Reason: nausea and vomiting) Qty: 8 RF: 0 neomycin 500 mg tablet 500 mg PO ONCE Qty: 8 RF: 0 metronidazole [Flagyl] 500 mg tablet 500 mg PO ONCE Qty: 8 RF: 0 Discharge Instructions Instructions: Laparoscopic Bowel Resection (DC) Additional Instructions: Activity at Home after surgery: 1. Make sure you walk outside at least 4 times per day 2. You should be able to climb a flight of stairs 3. No driving while in pain or taking pain medications 4. No strenuous activity or heavy lifting for 4 weeks (open surgery) Diet, Nutrition, & wound healin. Avoid alcohol until after you are recovered from your surgery 2. Make sure to eat plenty of lean protein (meat, fish, eggs, cottage cheese, beans) 3. Eat a variety of fruits and vegetables. Eat plenty of high fiber foods to avoid constipation. 4. Drink plenty of liquids to stay hydrated and avoid constipation Pain Medications: 1. Alternate Tylenol 650 mg and Ibuprofen 600 mg every 3 hours 2. If a narcotic has been prescribed take as directed only for breakthrough pain For Constipation: 1. Take MiraLax as needed for constipation Other: 1. You may shower daily. Do not scrub the incisions 2. Do not soak the incisions for 1 week 3. You may alternate ice and heat as needed for pain and swelling Wound Care: 1. Keep the incisions clean and dry Please call our office if you develop: 1. Fevers >101.5 2. Nausea or Vomiting 3. Worsening pain 4. Redness and thick discharge from the wounds If after hours please call the Hospital at and ask to speak to the on-call surgeon Referrals: Kellie Pisano MD [ [facility] STAFF PHYSICIAN] - 11/27/18 1:00 pm Activity:: No lifting pushing or pulling >20 lb x 4 weeks Equipment/Supplies:: No Equipment Needed Diet:: As Tolerated Discharge Orders Discharge Orders: Discharge Order (Routine); Ordered 11/17/18 Ordered By: Kellie Pisano Exam Const General: comfortable and no acute distress Orientation: alert and oriented x3 HENMT Head: normocephalic and atraumatic Resp Effort & Inspection: normal respiratory effort Auscultation: clear to auscultation bilaterally Cardio Rate: regular rate Rhythm: regular rhythm Heart Sounds: no gallops, no murmurs and no rubs GI Inspection: incision (c/d/i) Palpation: soft, no hepatosplenomegaly and nontender Auscultation: normal bowel sounds Extrem General: no clubbing, cyanosis or edema DS: Data Vitals/I&O Vitals and I&O: Vital Signs Temperature 97.2 F L 11/17/18 07:11 Temperature Source Tympanic 11/17/18 07:11 Pulse 96 H 11/17/18 07:11 Pulse Rhythm Regular 11/17/18 08:15 Respiratory Rate 11/17/18 07:11 Respiratory Effort Non-Labored 11/17/18 08:15 Respiratory Depth Normal 11/17/18 08:15 Respiratory Pattern Normal 11/17/18 08:15 Blood Pressure 143/78 H 11/17/18 07:11 Pulse Oximetry 96 11/17/18 07:11 Respiratory End-tidal CO2 31 11/14/18 13:10 Oxygen Delivery Method Room Air 11/17/18 07:11 Oxygen Flow Rate 0 11/17/18 07:11 Pain Level 0 11/17/18 06:03 Comment 11/14/18 20:07 Intake & Output 11/16/18 11/16/18 11/17/18 11:59 23:59 11:59 Intake Total 870 / 1130 260 / 1130 310 / 310 Output Total 400 / 650 250 / 650 Balance 470 / 480 10 / 480 310 / 310 Intake: IV 40 20 / 40 10 / 10 Oral 850 / 1090 240 / 1090 300 / 300 Output: Urine 400 / 650 250 / 650 Other: Urine Color Yellow Yellow Urine Appearance Clear Clear Urine Odor Normal Normal Comment pt voiding ad ron in toilet; urine not assessed at this time. pt denies issues at this time Patient up voiding independantly Stool Size Large Small Stool Characteristics Soft Liquid Liquid Brown Voiding Methods Toilet Toilet Toilet [facility] Medical History Primary adenocarcinoma of ascending colon (Acute) Diverticulosis (Acute) Colorectal polyps (Acute ~10/29/18) Hypertension (Chronic) Hypothyroid (Chronic) Irritable colon (Chronic) Obesity (Chronic) Surgical History S/P right hemicolectomy (Acute ~11/14/18) S/P total knee arthroplasty (Acute) S/P colonoscopy (Acute ~10/29/18) H/O hysterectomy with unilateral oophorectomy (Acute) History of tonsillectomy (Chronic) Family History Other Cancer Diabetes Heart disease Social History Smoking/Tobacco Use Status: Former Tobacco Use Alcohol Intake: current Alcohol Intake frequency: holidays/special occasions only Drug use: Never Substance use type: does not use Do you feel safe at home: Yes Do you feel safe in your relationship?: Yes
--- NOTE | 2018-11-17 13:10 | PDOC.CMDIS ---
- If Service Date Differs Date of service: 11/17/18 Time of Service: 13:10 LACE Index Scoring Tool - Questions: Length of Stay (in days): 4 - 6 Acuity (Admit via E.D.?): No Comorbidities: Any Tumor E.D. Visits: 1 - Answers: Total Score: 7 Risk of Readmission: Low Risk Care Management Discharge Reason for Hospitalization: Mavis was admitted status post right hemicolectomy for colon cancer. Discharge Plan: Mavis is being discharged home today with family. She will follow up with provider as directed. Mavis feels ready for dicharge and will not need additional services. Family to transport her home. Patient/Family Education Needs: Discharge education, limitations and follow up plan of care.
== END 2018-11-17 12:26 | disposition home or self-care (01) | DRG 331 ==
LOC: PDS 06:03 → MS 13:10
PROVIDERS: Admitting Provider Surgery; PCP Internal Medicine; Visit Provider Surgery
PROC: 0DTE4ZZ Resection of Large Intestine, Percutaneous Endoscopic Approach (ICD-10-PCS; CPT 44210; principal; 2018-11-14 07:30)
DX: C18.2 Malignant neoplasm of ascending colon (principal); Z90.49 Acquired absence of other specified parts of digestive tract; I10 Essential (primary) hypertension; K21.9 Gastro-esophageal reflux disease without esophagitis; E03.9 Hypothyroidism, unspecified
CPT/HCPCS: 44204; 36415; 80053; 86850; 86900; 86901; 88305; J1650; NC; 83735; 85025; 88309; J0295; J1885; J2001; J2250; J3010

== ENCOUNTER 2019-03-12 15:16 | Outpatient (REF) | payer OTHER, SELFPAY ==
--- NOTE | 2019-03-12 10:00 | PAPNONF_PTH ---
PATIENT: Mavis Gastelum LOC: [facility] U#:[id number] AGE/SX: 64/F ROOM: RE03/12/[address]: Radha Reyes : 1955 BED: DIS: 03/12/2019 SPEC #: [id number] RECD: 03/12/19 18:17 STATUS: QUOC REQ #: [id number] RONALDO: 03/12/19 10:[address]: Radha Reyes DEPT: FOR[facility], [facility]–1983 Cytology RECD BY: Lolis Bronson ENTERED: 03/12/19 18:17 SP TYPE: JOSE MOORE DR: Jonatan Garza Tissues: 1 - BODY FLUID CYTO(SPUTUM/URINE)[facility] Procedures: BODY FLUID CYTO(URINE/SPUTUM) Comments: [id number] (TOTAL VOLUME = 50 ml'S) (50 ml's URINE & 50 ml's CYTOLYT ADDED)
== END 2019-03-12 15:36 ==
LOC: NCHCN 15:16
PROVIDERS: PCP Internal Medicine; Visit Provider Nurse Practitioner Family
DX: R31.9 Hematuria, unspecified (principal); Z87.891 Personal history of nicotine dependence; R82.89 Other abnormal findings on cytological and histological examination of urine
CPT/HCPCS: 88104

== ENCOUNTER 2019-04-09 06:06 | Day surgery (SDC) | payer OTHER, SELFPAY ==
[2019-04-09 06:21] VITALS: BP 147/83; PULSE 106; RESP 17; TEMP 36.7; O2SAT 97
--- NOTE | 2019-04-09 06:25 | W.UPDATEHP ---
Date of service: 04/09/19 Time of Service: 07:18 Updated H&P Refer to Most Recent Clinic Note/H&P Dated: 03/21/19 H&P was reviewed,patient examined No change has occured in patient's condition since last H&P completed
--- NOTE | 2019-04-09 06:26 | COLE_ITS ---
Date of service: 04/09/19 Time of Service: 07:42 Colonoscopy Report Date of procedure: 04/09/19 Pre-op diagnosis general: Hx of colon cancer, change in bowel habits Post-op diagnosis procedure note: other (same, polyps and lovett-diverticulosis) Procedure: Colonoscopy with polypectomy Surgeon: Kellie Pisano Anesthesia proc note operative: other (General/ ASA 2/ Jimenez Victoria, [employer]) Estimated blood loss (mL): 5 Pathology: other (Transverse polyp x1, sigmoid polyp x1, rectal polyp x1) Complications: None Disposition: same day Indications: The patient is here for Colonoscopy pre-op. Her last screening was in 10/2018 and was remarkable for Adenocarcinoma, tubular adenoma x3 and sessile serrated adenoma x 1. She is s/p laproscopic right hemicolectomy on 11/14/[address] Pisano. She has no family history of colon cancer. She has not had any bowel habit changes. -Discussed colonoscopy bowel prep as well as the procedure. Discussed possible complications of the procedure to include bleeding, pain, perforation, missed small lesion/polyp, sore throat, aspiration and adverse reaction to the medications. Questions were answered to patient?s satisfaction. No guarantees were implied or given. She was orginally scheduled for her next f/u Colonoscopy in May of 2019 however given her changes in bowel habits, will proceed with Colonoscopy sooner. Prep: Miralax/Dulcolax Procedure Start Time: 07:42 Procedure End Time: 08:10 Retraction Time: 16 minutes Findings: 3 small polyps Wide open anastamosis Procedure Description: After informed consent was obtained the patient was taken to the procedure room and placed in a left decubitous position. Monitors were applied and a time out was done. The patients name, date of , procedure, allergies to medications and metal in their body was reviewed. The patient was then sedated. Once sedated and comfortable a rectal exam was done. External exam was normal. Internal exam revealed a normal sphincter tone and no palpable masses. The scope was then introduced and retro-flexed. No internal hemorrhoids, masses or polyps were identified on retro-flexion. The scope was then advanced to the cecum without difficulty. The anastamosis was identified and was wide open. Sutures and zandra were identified. There was no stricture and no masses or polyps in the area. The prep was good. The scope was then slowly retracted over 16 minutes back into the rectum. Polyps were removed with cold forceps in the transverse colon x1, sigmoid colon x1 and rectum x1. There was pandiverticulosis noted.The scope was removed and the patient was woken up and taken back to Same day surgery in stable condition. The patient tolerated the procedure well and there were no immediate complications. Follow up: The patient should follow up in 1 year unless they develop changes in bowel habits or other new gastrointestinal complaints.
--- NOTE | 2019-04-09 06:27 | W.PM.DSUDISC ---
Discharge Plan Disposition Patient Disposition: HOME Condition: Good Discharge Details Reason For Visit: Hx of colon cancer/ change in bowel habits Attending Provider: Kellie Pisano Primary Care Provider: Jonatan Garza Home Meds and New Rx's Prescriptions: Continued amlodipine 5 mg tablet 10 mg PO DAILY RF: 0 hydrochlorothiazide 12.5 mg capsule 12.5 mg PO DAILY RF: 0 levothyroxine 25 MCG tablet 25 mcg PO HS RF: 0 Whole Food Vitamin 1 tab PO DAILY RF: 0 aspirin 81 mg Tablet,Delayed Release (Dr/Ec) 81 mg PO DAILY RF: 0 Vitamin D3 4,000 UNIT capsule 4,000 unit PO DAILY RF: 0 acetaminophen [Tylenol 8 Hour] 650 mg tablet extended release 650 mg PO Q6H PRN PRN (Reason: fever or pain) Qty: 30 RF: 0 Discontinued polyethylene glycol 3350 17 gram/dose powder 238 g PO ONCE Qty: 238 RF: 0 bisacodyl [Dulcolax (bisacodyl)] 5 mg tablet,delayed release (DR/EC) 5 mg PO ONCE Qty: 4 RF: 0 Discharge Instructions Instructions: Diverticulosis (DC) Additional Instructions: Findings: 3 small polyps Diverticulosis Follow up: 1 year Please call if you develop: fevers >101.5 Nausea or Vomiting Abdominal pain that is not transient DAY SURGERY UNIT POST ENDOSCOPY INSTRUCTIONS 1. Because there will be medication in your system for the next 24 hours, you may feel a little sleepy. Your coordination will be affected. Therefore: a. Do not drive or operate dangerous equipment for 24 hours. b. Do not drink alcohol beverages for 24 hours (not even beer). c. Plan to go home and rest for the day. 2. Generally there are no restrictions on your activity after a day or so has gone by, but you may feel a bit fatigued for a few days. 3 After you arrive home you may have a light meal and return to a normal diet as you can tolerate it without feeling sick to your stomach. 4. After surgery, you may feel pain or discomfort. This should be only transient, but if it persists please contact your doctor. 5. If there are any questions regarding the findings of your procedure, please feel free to contact your doctor. 6. If you are unable to contact your doctor with a problem, contact the hospital at [phone]. 7. Continue all your regular medications unless directed otherwise. I understand the above instructions and have no questions. Signature of Patient or Responsible Adult Escort Date/Time Name of Responsible Adult Escort Signature of Nurse Date/Time Activity:: Activity as Tolerated Diet:: High Fiber diet Discharge Orders Discharge Orders: Discharge Order (Routine); Ordered 04/09/19 Ordered By: Kellie Pisano DS: Diagnosis Discharge Diagnosis (1) S/P colonoscopy: Status: Acute
--- NOTE | 2019-04-09 07:18 | HPE_ITS ---
Date of service: 04/09/19 Time of Service: 07:18 Updated H&P Refer to Most Recent Clinic Note/H&P Dated: 03/21/19 H&P was reviewed,patient examined No change has occured in patient's condition since last H&P completed cc: Dictated by: ROSA KEYES MD Dictated: 04/09/19Time: 624 <Electronically signed by Kellie Keyes M.D.> Date: 06/09/18717 Date: Date: Transcribed Date: 04/09/19 Transcribed Time: 624By: MELISSA
[2019-04-09] MEDS: Lactated Ringers 1,000 ML 80 ML IV (07:23)
--- NOTE | 2019-04-09 07:45 | BOWEL_PTH ---
PATIENT: Mavis Gastelum LOC: [facility] U#:[id number] AGE/SX: 64/F ROOM: RE04/09/[address]: Kellie Pisano MD : 1955 BED: DIS: 04/09/2019 SPEC #: [id number] RECD: 04/09/19 12:36 STATUS: QUOC RE #: [id number] RONALDO: 04/09/19 07:[address]: Kellie Pisano DEPT: Surgical Specimen RECD BY: Lolis Bronson ENTERED: 04/09/19 12:36 SP TYPE: Bowel OTHR DR: Jonatan Garza Tissues: 1 - BIOPSY BOWEL 2 - BIOPSY BOWEL 3 - BIOPSY BOWEL Procedures: GROSS AND MICRO LEVEL 4 IMMUNOPEROXIDASE STAIN Comments: [id number]
[2019-04-09 08:50] VITALS: BP 138/81; PULSE 86; RESP 16; TEMP 36.4; O2SAT 97
== END 2019-04-09 09:12 | disposition home or self-care (01) ==
PROVIDERS: PCP Internal Medicine; Visit Provider Surgery
PROC: 0DJD8ZZ Inspection of Lower Intestinal Tract, Via Natural or Artificial Opening Endoscopic (ICD-10-PCS; CPT 45378; principal; 2019-04-09 07:30)
DX: R19.4 Change in bowel habit (principal); K57.30 Diverticulosis of large intestine without perforation or abscess without bleeding; Z85.038 Personal history of other malignant neoplasm of large intestine; Z86.010 Personal history of colon polyps; Z90.49 Acquired absence of other specified parts of digestive tract; K63.5 Polyp of colon; I10 Essential (primary) hypertension
CPT/HCPCS: 45380; 88305; 88361; J2250; J3010

== ENCOUNTER 2019-05-14 09:09 | Outpatient (REF) | payer OTHER, SELFPAY ==
[2019-05-14 19:46] LABS: BUN 14 mg/dL (7-18); CREATININE 0.74 mg/dL (0.55-1.02); Calcium 9.2 mg/dL (8.5-10.1); Calculated LDL 147 mg/dL; Chloride 105 mmol/L (98-107); Cholesterol 237 mg/dL (<200); Glucose 94 mg/dL (74-106); HDL Cholesterol 51 mg/dL (40-60); Sodium 142 mmol/L (136-145); TSH (W/Ref FT4) 3.23 uIU/mL (0.36-3.74); Triglyceride 199 mg/dL (<150)
== END 2019-05-14 09:29 ==
LOC: NCHCN 09:09
PROVIDERS: PCP Internal Medicine; Visit Provider Physician Assistant
DX: E03.9 Hypothyroidism, unspecified (principal); G47.00 Insomnia, unspecified; Z68.38 Body mass index [BMI] 38.0-38.9, adult; I10 Essential (primary) hypertension; E78.5 Hyperlipidemia, unspecified
CPT/HCPCS: 80048; 80061; 82533; 84443

== ENCOUNTER 2019-07-30 10:15 | Outpatient (REF) | payer SELFPAY ==
[2019-07-30 19:19] LABS: TSH 1.87 uIU/mL (0.36-3.74)
== END 2019-07-30 10:35 ==
LOC: NCHCN 10:15
PROVIDERS: PCP Internal Medicine; Visit Provider Physician Assistant
DX: E03.9 Hypothyroidism, unspecified (principal)
CPT/HCPCS: 84443

== ENCOUNTER 2020-04-23 21:34 | Outpatient (REF) | payer BC, SELFPAY ==
[2020-04-23 18:51] LABS: Abs Immature Grans 0.02 10^3/uL (0.0-0.06); Absolute Basophil Count 0.04 10^3/uL (0.0-0.2); Absolute Eosinophil Count 0.14 10^3/uL (0.0-0.7); Absolute Lymphocyte Count 2.28 10^3/uL (1.2-3.4); Absolute Monocyte Count 0.49 10^3/uL (0.1-0.8); Absolute Neutrophil Count 6.18 10^3/uL (1.2-6.7); Basophils % 0.4; Eosinophils % 1.5; HCT 42.2 % (36.0-46.0); Immature Grans % 0.2; Lymphocytes % 24.9; MCH 29.8 pg (27.0-33.0); MCHC 33.2 % (32.0-36.0); MCV 89.8 fL (80-95); MPV 10.7 fL (8.0-11.0); Monocytes % 5.4; Neutrophils % 67.6; Nucleated RBC 0 %; Platelet Count 245 10^3/uL (130-400); RDW 13.5 % (11.7-14.6); RDW-SD 44.3 fL; WBC 9.15 10^3/uL (4.4-10.8)
[2020-04-23 19:20] LABS: ALT 33 U/L (14-59); AST 21 U/L (15-37); Albumin 3.8 g/dL (3.4-5.0); Alkaline Phosphatase 128 U/L (46-116); Anion Gap 11.7 mmol/L (3-11); BUN 17 mg/dL (7-18); Bilirubin, Total 1.1 mg/dL (0.2-1.0); CO2 23.3 mmol/L (21.0-32.0); CREATININE 0.87 mg/dL (0.55-1.02); Chloride 104 mmol/L (98-107); FREE T4 1.24 ng/dL (0.76-1.46); Glucose 94 mg/dL (74-106); Potassium 4.1 mmol/L (3.5-5.1); Sodium 139 mmol/L (136-145); TSH 3.19 uIU/mL (0.36-3.74); Total Protein 6.7 g/dL (6.4-8.2)
[2020-04-24 17:17] LABS: T3, Total 131 ng/dL (97-169)
== END 2020-04-23 21:54 ==
LOC: NCHCN 21:34
PROVIDERS: PCP Internal Medicine; Visit Provider Physician Assistant
DX: I10 Essential (primary) hypertension (principal); E03.9 Hypothyroidism, unspecified; E78.5 Hyperlipidemia, unspecified
CPT/HCPCS: 80053; 84439; 84443; 84480; 85025

== ENCOUNTER 2020-06-18 03:38 | Outpatient (CLI) | payer BC, SELFPAY ==
[2020-06-19 15:30] LABS: COVID-19 RT-PCR UVMMC Result Negative (Negative)
== END 2020-06-18 03:39 | disposition home or self-care (01) ==
LOC: LBO 03:38
PROVIDERS: PCP Internal Medicine; Visit Provider Surgery
DX: Z20.822 Contact with and (suspected) exposure to COVID-19 (principal); Z01.818 Encounter for other preprocedural examination
CPT/HCPCS: U0003

== ENCOUNTER 2020-06-22 06:16 | Day surgery (SDC) | payer BC, SELFPAY ==
[2020-06-22 06:26] VITALS: BP 157/69; PULSE 82; RESP 16; TEMP 36.6; O2SAT 97
--- NOTE | 2020-06-22 06:45 | COLE_ITS ---
Date of service: 06/22/20 Time of Service: : Colonoscopy Report Date of procedure: 06/22/20 Pre-op diagnosis general: Hx of colon Cancer Post-op diagnosis procedure note: same (and benign polyps) Procedure: Colonoscopy with polypectomy Surgeon: Kellie Pisano Anesthesia proc note operative: other (General/ASA 2/Jimenez Sims CRNA) Estimated blood loss (mL): 5 Pathology: other (Transverse polyp and rectal polyps x6) Complications: None Disposition: same day Indications: The patient is here for Colonoscopy pre-op. Her last screening was in 03/2019, which was remarkable for hyperplastic polyps. She underwent right hemicolectomy for colon cancer in 2019. She has not had any bowel habit changes. -Discussed colonoscopy bowel prep as well as the procedure. Discussed possible complications of the procedure to include bleeding, pain, perforation, missed small lesion/polyp, sore throat, aspiration and adverse reaction to the medications. Questions were answered to patient?s satisfaction. No guarantees were implied or given. Prep: Miralax/Dulcolax Procedure Start Time: Procedure End Time: : Retraction Time: 17 minutes Findings: 7 small benign appearing polyps Rangel-diverticulosis Procedure Description: After informed consent was obtained the patient was taken to the procedure room and placed in a left decubitous position. Monitors were applied and a time out was done. The patients name, date of , pr ocedure, allergies to medications and metal in their body was reviewed. The patient was then sedated. Once sedated and comfortable a rectal exam was done. External exam was normal. Internal exam revealed a normal sphincter tone and no palpable masses. The scope was then introduced and retro-flexed. No internal hemorrhoids, polyps or masses were identified on retro-flexion. The scope was then advanced to the cecum without difficulty. The ileocecal valve and appendiceal orifice were identified. The prep was good. The scope was then slowly retracted over 17 minutes back into the rectum. Polyps were removed with cold forceps in the transverse colon and rectum. There was moderate rangel-diverticulosis noted. The scope was removed and the patient was woken up and taken back to Same day surgery in stable condition. The patient tolerated the procedure well and there were no immediate complications. Follow up: The patient should follow up in 1 year unless they develop changes in bowel habits or other new gastrointestinal complaints.
--- NOTE | 2020-06-22 06:47 | W.PM.DSUDISC ---
Discharge Plan Disposition Patient Disposition: HOME Condition: Good Discharge Details Reason For Visit: colonoscopy Attending Provider: Kellie Pisano Primary Care Provider: Jonatan Garza Home Meds and New Rx's Prescriptions: Continued amlodipine 5 mg tablet 10 mg PO DAILY RF: 0 hydrochlorothiazide 12.5 mg capsule 12.5 mg PO DAILY RF: 0 levothyroxine 25 MCG tablet 25 mcg PO HS RF: 0 Whole Food Vitamin 1 tab PO DAILY RF: 0 Vitamin D3 4,000 UNIT capsule 4,000 unit PO DAILY RF: 0 acetaminophen [Tylenol 8 Hour] 650 mg tablet extended release 650 mg PO Q6H PRN PRN (Reason: fever or pain) Qty: 30 RF: 0 Discontinued polyethylene glycol 3350 17 gram/dose powder 238 g PO ONCE Qty: 238 RF: 0 bisacodyl [Dulcolax (bisacodyl)] 5 mg tablet,delayed release (DR/EC) 5 mg PO ONCE Qty: 4 RF: 0 Discharge Instructions Instructions: Diverticulosis (DC) Additional Instructions: Findings: Diverticulosis 7 benign appearing polyps Follow up: 1 year Please call if you develop: fevers >101.5 Nausea or Vomiting Abdominal pain that is not transient DAY SURGERY UNIT POST ENDOSCOPY INSTRUCTIONS 1. Because there will be medication in your system for the next 24 hours, you may feel a little sleepy. Your coordination will be affected. Therefore: a. Do not drive or operate dangerous equipment for 24 hours. b. Do not drink alcohol beverages for 24 hours (not even beer). c. Plan to go home and rest for the day. 2. Generally there are no restrictions on your activity after a day or so has gone by, but you may feel a bit fatigued for a few days. 3 After you arrive home you may have a light meal and return to a normal diet as you can tolerate it without feeling sick to your stomach. 4. After surgery, you may feel pain or discomfort. This should be only transient, but if it persists please contact your doctor. 5. If there are any questions regarding the findings of your procedure, please feel free to contact your doctor. 6. If you are unable to contact your doctor with a problem, contact the hospital at [phone]. 7. Continue all your regular medications unless directed otherwise. I understand the above instructions and have no questions. Signature of Patient or Responsible Adult Escort Date/Time Name of Responsible Adult Escort Signature of Nurse Date/Timen Activity:: Activity as Tolerated Diet:: As Tolerated Discharge Orders Discharge Orders: Discharge Order (Routine); Ordered 06/22/20 Ordered By: Kellie Pisano
[2020-06-22] MEDS: Lactated Ringers 1,000 ML 80 ML IV (07:11)
--- NOTE | 2020-06-22 07:57 | BOWEL_PTH ---
PATIENT: Mavis Gastelum LOC: [facility] U#:[id number] AGE/SX: 65/F ROOM: RE06/22/[address]: Kellie Pisano MD : 1955 BED: DIS: 06/22/2020 SPEC #: [id number] RECD: 06/22/20 12:48 STATUS: QUOC REQ #: [id number] RONALDO: 06/22/20 07:[address]: Kellie Pisano DEPT: Surgical Specimen RECD BY: Lolis Bronson ENTERED: 06/22/20 12:49 SP TYPE: Bowel OTHR DR: Jonatan Garza Tissues: 1 - BIOPSY BOWEL 2 - BIOPSY BOWEL Procedures: GROSS AND MICRO LEVEL 4 Comments: [id number]
[2020-06-22 08:37] VITALS: BP 123/65; PULSE 70; RESP 16; TEMP 36.6; O2SAT 95
== END 2020-06-22 08:55 | disposition home or self-care (01) ==
PROVIDERS: PCP Internal Medicine; Visit Provider Surgery
PROC: 0DJD8ZZ Inspection of Lower Intestinal Tract, Via Natural or Artificial Opening Endoscopic (ICD-10-PCS; CPT 45378; principal; 2020-06-22 07:30)
DX: Z12.11 Encounter for screening for malignant neoplasm of colon (principal); Z85.038 Personal history of other malignant neoplasm of large intestine; Z87.19 Personal history of other diseases of the digestive system; K57.30 Diverticulosis of large intestine without perforation or abscess without bleeding; D12.3 Benign neoplasm of transverse colon; K62.1 Rectal polyp; Z98.0 Intestinal bypass and anastomosis status; I10 Essential (primary) hypertension
CPT/HCPCS: 45380; 88305; J2001

== ENCOUNTER 2020-11-03 09:53 | Outpatient (REF) | payer BC, SELFPAY ==
[2020-11-03 18:44] LABS: Anion Gap 7.6 mmol/L (3-11); BUN 17 mg/dL (7-18); CO2 29.4 mmol/L (21.0-32.0); CREATININE 0.6 mg/dL (0.55-1.02); Calcium 9.4 mg/dL (8.5-10.1); Chloride 106 mmol/L (98-107); Glucose 100 mg/dL (74-106); Potassium 4.5 mmol/L (3.5-5.1); Sodium 143 mmol/L (136-145); TSH (W/Ref FT4) 1.82 uIU/mL (0.36-3.74)
== END 2020-11-03 09:54 | disposition home or self-care (01) ==
LOC: NCHCN 09:53
PROVIDERS: PCP Internal Medicine; Visit Provider Physician Assistant
DX: E03.9 Hypothyroidism, unspecified (principal); I10 Essential (primary) hypertension
CPT/HCPCS: 80048; 84443

== ENCOUNTER 2020-11-20 04:17 | Outpatient (CLI) | payer BC, SELFPAY ==
--- NOTE | 2020-11-20 | DI.MAMMO_ITS ---
Exam(s) MAMMO SCREENING EXAM: MAMMO SCREENING CLINICAL HISTORY: SCREENING, Z12.31, FAMILY H/O BREAST CA TECHNIQUE: Mammograms were interpreted according to the usual protocol including computer analysis w [employer] CAD system, tomosynthesis and C-view imaging. COMPARISON: 2019 FINDINGS: The breasts are composed of mainly fatty density , Breast Density category A. No suspicious masses or suspicious microcalcifications are seen. No skin thickening or abnormal axillary lymph nodes are seen. There has been no significant change from the prior exam. IMPRESSION: BI-RADS Category 1, Negative mammogram Yearly screening mammography is recommended. Breast Density - Category A, fatty density. A negative radiographic report should not delay biopsy if a dominant or clinically suspicious mass is present. Up to ten percent of cancers are not identified on mammography. A negative report may reinforce clinical impression. Adenosis and dense breasts may obscure an underlying neoplasm. False positive reports average 6 to 10%. Patient will receive a letter notifying them of these results.
== END 2020-11-20 04:37 ==
PROVIDERS: PCP Internal Medicine; Visit Provider Physician Assistant
DX: Z12.31 Encounter for screening mammogram for malignant neoplasm of breast (principal); R92.8 Other abnormal and inconclusive findings on diagnostic imaging of breast
CPT/HCPCS: 77063; 77067

== ENCOUNTER 2021-03-29 08:23 | Outpatient (REF) | payer BC, SELFPAY ==
[2021-03-29 19:55] LABS: Calculated LDL 149 mg/dL (<100); Cholesterol 230 mg/dL (<200); HDL Cholesterol 49 mg/dL (40-60); Triglyceride 162 mg/dL (<150)
== END 2021-03-29 08:24 | disposition home or self-care (01) ==
LOC: NCHCN 08:23
PROVIDERS: PCP Internal Medicine; Visit Provider Nurse Practitioner Family
DX: I10 Essential (primary) hypertension (principal); E78.5 Hyperlipidemia, unspecified; E03.9 Hypothyroidism, unspecified
CPT/HCPCS: 80061

== ENCOUNTER 2022-01-05 17:19 | Outpatient (REF) | payer BC, SELFPAY ==
[2022-01-05 21:47] LABS: ALT 32 U/L (14-59); AST 25 U/L (15-37); Albumin 3.7 g/dL (3.4-5.0); Alkaline Phosphatase 106 U/L (46-116); Anion Gap 10.8 mmol/L (3-11); BUN 15 mg/dL (7-18); Bilirubin, Total 0.8 mg/dL (0.2-1.0); CO2 25.2 mmol/L (21.0-32.0); CREATININE 0.6 mg/dL (0.55-1.02); Calcium 8.8 mg/dL (8.5-10.1); Calculated LDL 150 mg/dL (<100); Chloride 105 mmol/L (98-107); Cholesterol 237 mg/dL (<200); Glucose 95 mg/dL (74-106); HDL Cholesterol 46 mg/dL (40-60); Sodium 141 mmol/L (136-145); TSH (W/Ref FT4) 1.39 uIU/mL (0.36-3.74); Total Protein 7.2 g/dL (6.4-8.2); Triglyceride 209 mg/dL (<150)
== END 2022-01-05 17:20 | disposition home or self-care (01) ==
LOC: NCHCN 17:19
PROVIDERS: PCP Internal Medicine; Visit Provider Nurse Practitioner Family
DX: I10 Essential (primary) hypertension (principal); E78.5 Hyperlipidemia, unspecified; E03.9 Hypothyroidism, unspecified
CPT/HCPCS: 80053; 80061; 84443

== ENCOUNTER → 2022-01-27 02:23 | Outpatient (CLI) | payer BC, SELFPAY ==
--- NOTE | 2022-01-27 12:59 | DI.MAMMO_ITS ---
Exam(s) MAMMO SCREENING EXAM: MAMMO SCREENING CLINICAL HISTORY: SCREENING, FAMILY HX BREAST CA, Z80.3 TECHNIQUE: Bilateral full field digital CC and MLO mammographic images were obtained with 3D tomosyn thesis and utilizing computer aided detection (CAD). COMPARISON: Available for comparison. FINDINGS: Masses/Architectural Distortion: None seen. Microcalcifications: No suspicious pleomorphic-type are seen. Skin Thickening/Nipple Retraction: None. IMPRESSION: 1. No significant interval change with no specific features of malignancy noted. 2. Unless there is more urgent need, screening mammography is recommended, as per [employer] [employer] guidelines. BI-RADS Category 1 - Negative Breast Density - Category A - Almost entirely fatty Breast density category C or D implies that the patient has dense breast tissue. Dense breast tissue is very common and is not abnormal but dense breast tissue can make it harder to find cancer on a ma mmogram. Also, dense breast tissue may increase their breast cancer risk. This information about the result of the mammogram report was provided to the patient to raise their awareness. Use this report when you speak with the patient about their risks for breast cancer, which includes their family hist ory. At that time, you may recommend for more screening tests (Ultrasound or MRI) as they might be us eful based on their risk. A negative radiographic report should not delay biopsy if a dominant or clinically suspicious mass is present. Up to ten percent of cancers are not identified on mammography. A negative report may reinforce clinical impression. Adenosis and dense breasts may obscure an underlying neoplasm. False positive reports average 6 to 10%. Patient will receive a letter notifying them of these results.
== END ==
PROVIDERS: PCP Internal Medicine; Visit Provider Nurse Practitioner Family
DX: Z12.31 Encounter for screening mammogram for malignant neoplasm of breast (principal)
CPT/HCPCS: 77063; 77067

== ENCOUNTER 2022-03-28 06:03 | Day surgery (SDC) | payer BC, SELFPAY ==
--- NOTE | 2022-03-28 06:12 | W.COLOREPORT ---
Date of service: 03/28/22 Time of Service: 07:25 Colonoscopy Report Date of procedure: 03/28/22 Pre-op diagnosis general: screening and Hx of colon Cancer Post-op diagnosis procedure note: other (polyp and severe diverticulosis) Procedure: Colonoscopy with polypectomy Surgeon: Kellie Pisano Anesthesia Type: General:No Airway Estimated blood loss (mL): 2 Pathology: other (descending polyp) Complications: None Disposition: same day Indications: The patient? is a pleasant? 67 -year-old female who is here to discuss another screening colonoscopy.? She has a history of ascending invasive colon cancer back in 2019.? Her last colonoscopy was in 2020. She had a Tubular adenoma and a hyperplastic polyp. ? She denies any changes in bowel habits, melena, hematochezia, unintentional weight loss or family history of colon cancer.? The procedure and risks were discussed.? The prep was reviewed in detail.? Risks, benefits and complications have been reviewed. Complications include but are not limited to bleeding, pain, perforation, missed small lesion/polyp, sore throat, aspiration and adverse reaction to the medications. Questions were entertained and answered to their satisfaction and they wished to proceed. No guarantees were given or implied. Prep: Miralax/Dulcolax Procedure Start Time: :25 Procedure End Time: :51 Retraction Time: 12 minutes Findings: one small polyp severe lovett-diverticulosis Procedure Description: After informed consent was obtained the patient was taken to the procedure room and placed in a left decubitous position. Monitors were applied and a time out was done. The patients name, date of , procedure, allergies to medications and metal in their body was reviewed. The patient was then sedated. Once sedated and comfortable a rectal exam was done. External exam was normal. Internal exam revealed a decreased sphincter tone and no palpable masses. The scope was then introduced and retro-flexed. No internal hemorrhoids, polyps or masses were identified on retro-flexion. The scope was then advanced to the anastamosis without difficulty. The ileocecal vlave and appendiceal orifice were identified. The prep was good. The scope was then slowly retracted over 12 minutes back into the rectum. Polyps were removed with cold forceps in the descending colon. There was severe lovett diverticulosis noted. The scope was removed and the patient was woken up and taken back to Same day surgery in stable condition. The patient tolerated the procedure well and there were no immediate complications.
--- NOTE | 2022-03-28 06:13 | W.PM.DSUDISC ---
Date of service: 03/28/22 Time of Service: 07:56 Discharge Plan Disposition Patient Disposition: HOME Condition: Good Discharge Details Reason For Visit: colonoscopy Attending Provider: Kellie Pisano Primary Care Provider: Jonatan Garza Home Meds and New Rx's Prescriptions: Continued amlodipine 5 mg tablet 10 mg PO DAILY hydrochlorothiazide 12.5 mg capsule 12.5 mg PO DAILY turmeric 400 mg capsule 1,500 mg PO DAILY beta-glucan,1-3, 1-4 (bulk) 70 % powder miscellaneous DAILY levothyroxine 25 MCG tablet 25 mcg PO HS aspirin [Adult Aspirin Regimen] 81 mg tablet,delayed release (DR/EC) 81 mg PO DAILY amoxicillin 500 mg capsule 500 mg PO BID PRN Label Comments: For dental appt. only Whole Food Vitamin 1 tab PO DAILY Vitamin D3 4,000 UNIT capsule 4,000 unit PO DAILY acetaminophen [Tylenol 8 Hour] 650 mg tablet extended release 650 mg PO Q6H PRN PRN (Reason: fever or pain) Qty: 30 0RF Discontinued polyethylene glycol 3350 17 gram/dose powder 17 g PO ONCE Qty: 238 0RF Rx Instructions: To be taken as directed by prescriber's office for colonoscopy prep. bisacodyl [Dulcolax (bisacodyl)] 5 mg tablet,delayed release (DR/EC) 5 mg PO ONCE Qty: 4 0RF Rx Instructions: Take according to provider's instructions for colonoscopy prep. Discharge Instructions Additional Instructions: Findings: One polyp severe diverticulosis Follow up: most likely 3 years Please call if you develop: fevers >101.5 Nausea or Vomiting Abdominal pain that is not transient Rectal bleeding that is more then a tbsp A hard abdomen and inability to pass gas DAY SURGERY UNIT POST ENDOSCOPY INSTRUCTIONS Instructions for everyone who is given Anesthesia: For your safety, please do the following for the next 24 Hours: a. Do not drive or operate dangerous equipment b. Do not drink alcohol beverages or use any recreational drugs for the first 24 hours or while taking pain medications. The medications in your body may have a reaction that can be dangerous. c. Do not make any important decisions or sign any important papers 1. Generally there are no restrictions on your activity after a day or so has gone by, but you may feel a bit fatigued for a few days. 2. After you arrive home you may have a light meal and return to a normal diet as you can tolerate it without feeling sick to your stomach. 3. After surgery, you may feel pain or discomfort. This should be only transient, but if it persists please contact your doctor. 4. If there are any questions regarding the findings of your procedure, please feel free to contact your doctor. 6. If you are unable to contact your doctor with a problem, contact the hospital at [phone]. 7. Continue all your regular medications unless directed otherwise. I understand the above instructions and have no questions. Signature of Patient or Responsible Adult Escort Date/Time Name of Responsible Adult Escort Signature of Nurse Date/Time Activity:: Activity as Tolerated Diet:: high fiber Discharge Orders Discharge Orders: Discharge Order (Routine); Ordered 03/28/22 Ordered By: Kellie Pisano
[2022-03-28 06:22] VITALS: BP 148/79; PULSE 90; RESP 14; TEMP 36.4; O2SAT 97
[2022-03-28] MEDS: Lactated Ringers 1,000 ML 80 ML IV (06:45)
--- NOTE | 2022-03-28 07:04 | W.ANESPRE ---
General Info Date of Service Date Performed: 03/28/22 Height: 5 ft 7 in Weight: 104.6 kg Body Mass Index (BMI): 36.1 Surgical Procedure: Operation Date: 03/28/22 07:35 Proposed Procedure Side Surgeon p Amie Pisano MD Meds Allergies and Home Medications Allergies Allergy/AdvReac Type Severity Reaction Status Date / Time ARJUN Inhibitors Allergy Intermediate Verified 03/28/22 06:18 gluten Allergy Intermediate Wheezing Verified 03/28/22 06:18 lisinopril AdvReac Mild COUGH Verified 03/28/22 06:18 oxycodone AdvReac Unknown Other (See Verified 03/28/22 06:18 Comment) Home Medication Medication Instructions Recorded levothyroxine 25 mcg tablet 25 mcg PO HS 11/28/17 cholecalciferol (vitamin D3) 100 4,000 unit PO DAILY 12/06/17 mcg (4,000 unit) capsule (Vitamin D3) Whole Food Vitamin 1 tab PO DAILY 10/26/18 acetaminophen 650 mg 650 mg PO Q6H PRN PRN fever or 11/17/18 tablet,extended release (Tylenol 8 pain #30 tabs Hour) amlodipine 5 mg tablet 10 mg PO DAILY 03/21/19 hydrochlorothiazide 12.5 mg capsule 12.5 mg PO DAILY 03/21/19 amoxicillin 500 mg capsule 500 mg PO BID PRN 02/21/22 aspirin 81 mg tablet,delayed 81 mg PO DAILY 02/21/22 release (Adult Aspirin Regimen) beta-glucan,1-3, 1-4 (bulk) 70 % pwd miscellaneous DAILY 03/08/22 powder bisacodyl 5 mg tablet,delayed 5 mg PO ONCE #4 tabs 03/08/22 release (Dulcolax (bisacodyl)) polyethylene glycol 3350 17 17 g PO ONCE #238 grams 03/08/22 gram/dose oral powder turmeric 400 mg capsule 1,500 mg PO DAILY 03/08/22 Current Visit Medications: Current Medications Generic Name Dose Route Start Last Admin Trade Name Freq PRN Reason Stop Dose Admin Hyoscyamine Sulfate 0.125 mg 03/28/22 06:14 Hyoscyamine 0.125 Mg Sl/Oral/Chew SL DIRECTED PRN Ringer's Solution 1,000 mls @ 80 mls/hr 03/28/22 06:00 03/28/22 06:45 IV 04/24/22 23:59 80 mls/hr INFUSION REYNOLD Administration IV Miscellaneous Supplies 1 each 03/28/22 06:00 Iv Access IV 04/24/22 23:59 DIRECTED REYNOLD Ondansetron HCl 4 mg 03/28/22 06:14 Ondansetron 4 Mg/2 Ml Vial IVP Q4H PRN PRN Nausea / Vomiting Sodium Chloride 0 ml 03/28/22 06:00 Normal Saline Flush 10 Ml Syr IV 04/24/22 23:59 PRN PRN Sodium Chloride 0 ml 03/28/22 06:00 Normal Saline 10 Ml Vial IJ 04/24/22 23:59 DIRECTED PRN Sterile Water 0 ml 03/28/22 06:00 Water,Injection,Sterile 10 Ml Vial IJ 04/24/22 23:59 DIRECTED PRN PFSH Active Problems Active Problems: Problem Status Onset Code Family history of breast cancer Z80.3 Incisional hernia K43.2 Left hip pain M25.552 Tubular adenoma of colon D12.6 Hyperplastic colon polyp K63.5 Peroneal tendinitis, right leg M76.71 Encounter for screening colonoscopy Z12.11 Primary adenocarcinoma of ascending colon Diverticulosis K57.90 Colorectal polyps ~10/29/18 K63.5 Medical History Medical History Former smoker Hyperlipidemia Hypertension Hypothyroid Irritable colon per pt better at this time. Obesity Surgical History Surgical History H/O hysterectomy with unilateral oophorectomy History of tonsillectomy S/P colonoscopy (~04/09/19) 10/29/18- colon cancer S/P right hemicolectomy (~11/14/18) Laparoscopic S/P total knee arthroplasty Right knee Status post total right knee replacement DOS: 12/11/17 Dr. Bazzi Tobacco Smoking/Tobacco Use Status: Former Tobacco Use Alcohol Alcohol Intake: current Alcohol intake frequency: holidays/special occasions only Alcohol type: wine and hard liquor Substance Use Substance use: Never Substance use type: does not use Vital Signs and Lab Results Vital Signs Most Recent Vital Signs in EMR: Most Recent Vital Signs Temp Pulse Resp BP Pulse Ox 36.4 C L 90 14 148/79 H 97 03/28/22 06:22 03/28/22 06:22 03/28/22 06:22 03/28/22 06:22 03/28/22 06:22 Lab Results Blood Type / Crossmatch: No Data to Display Complete Blood Count: No Data to Display Complete Metabolic Panel: No Data to Display Liver Function Panel: No Data to Display Coagulation Panel: No Data to Display Cardiac Panel: No Data to Display Arterial Blood Gas: No Data to Display Venous Blood Gas: No Data to Display Pancreas Panel: No Data to Display Thyroid Panel: No Data to Display Infectious Disease: No Data to Display Blood Cultures: No Data to Display Toxicology Panel: No Data to Display Anesthesia Assessment and Plan Anesthesia History Personal History: No History of Anesthesia Complications Family History: No Family History of Anesthesia Complications Exercise Tolerance Exercise Tolerance: Metabolic Equivalents>4 Pertinent Negatives Pertinent Negatives: No Symptoms of GERD, No Major Cardiovascular Symptoms or Complaints, No Major Pulmonary Symptoms or Complaints and No History of CVA/TIA Cardiac & Pulmonary Exam Cardiac Exam: Normal S1/S2 Heart Sounds Pulmonary Exam: Clear Bilateral Breath Sounds Implantable Cardiac Device Does patient have a Pacemaker or an ICD?: No Airway Exam Known Difficult Airway: No Mallampati Class: 2 Mouth Opening: Normal (> 3cm) Thyromental Distance: Greater than 3 cm Neck Range of Motion: Full ROM Neck Circumference: Normal Teeth Condition: Normal Dentition ASA Classification ASA Score: ASA 2 Emergency Case?: No NPO Status NPO Status: NPO Clears >2 hours, Solids >8 hours Anesthesia Plan Resuscitation Status: Full Code Anesthesia Technique: General Anesthesia Airway Planned: Natural Airway Monitors Used: Standard Monitors
[2022-03-28 07:12] VITALS: BMI 36.1
--- NOTE | 2022-03-28 07:47 | BOWEL_PTH ---
PATIENT: Mavis Gastelum LOC: [facility] U#:[id number] AGE/SX: 67/F ROOM: RE03/28/[address]: Kellie Pisano MD : [id number] BED: DIS: 03/28/2022 SPEC #: [id number] RECD: 03/28/22 12:48 STATUS: QUOC REQ #: [id number] RONALDO: 03/28/22 07:[address]: Kellie Pisano DEPT: Surgical Specimen RECD BY: Lolis Bronson ENTERED: 03/28/22 12:49 SP TYPE: Bowel OTHR DR: Jonatan Garza Tissues: 1 - BIOPSY BOWEL Procedures: GROSS AND MICRO LEVEL 4 Comments: [id number]
[2022-03-28 07:55] VITALS: BP 122/74; PULSE 87; RESP 18; TEMP 36.3; O2SAT 93
--- NOTE | 2022-03-28 07:57 | W.ANESPOSTOP ---
Postoperative Evaluation Date, Time and Location Date Performed: 03/28/22 Time Performed: 07:57 Patient Location: Day Surgery Unit Vital Signs Most Recent Imported Vital Signs: Most Recent Vital Signs Temp Pulse Resp BP Pulse Ox 36.4 C L 90 14 148/79 H 97 03/28/22 06:22 03/28/22 06:22 03/28/22 06:22 03/28/22 06:22 03/28/22 06:22 Most Recent Manually Entered Vital Signs: Adult Blood Pressure: 122/74 Heart Rate: 87 Respirations: 16 Oxygen Saturation (%): 93 Temperature (C): 36.3 C Pain Score (0-10 Scale): 3 Pain Score Most Recent Pain Score: Most Recent Pain Score Pain Level 0 03/28/22 06:22 Assessment Mental Status: Awake (Alert & Oriented to Patient Baseline) Airway and Respiratory Function: Patent airway with normal (patient baseline) respiratory exam Cardiovascular Function: Hemodynamically Stable Hydration Status: Adequately Hydrated Nausea & Vomiting: No Nausea or Vomiting Pain: Pain is tolerable per patient (Abd cramping) Peripheral Nerve Block: Patient did not receive a nerve block
[2022-03-28 07:59] VITALS: BP 122/74; PULSE 87; RESP 16; TEMPC 36.3; O2SAT 93
[2022-03-28 08:15] VITALS: BP 149/76; PULSE 80; RESP 18; TEMP 36.3; O2SAT 95
== END 2022-03-28 08:27 | disposition home or self-care (01) ==
PROVIDERS: PCP Internal Medicine; Visit Provider Surgery
PROC: 0DJD8ZZ Inspection of Lower Intestinal Tract, Via Natural or Artificial Opening Endoscopic (ICD-10-PCS; CPT 45378; principal; 2022-03-28 07:30)
DX: Z12.11 Encounter for screening for malignant neoplasm of colon (principal); K63.5 Polyp of colon; Z85.038 Personal history of other malignant neoplasm of large intestine; K57.30 Diverticulosis of large intestine without perforation or abscess without bleeding; Z86.010 Personal history of colon polyps; Z98.0 Intestinal bypass and anastomosis status
CPT/HCPCS: 45380; 88305; J2405

== ENCOUNTER → 2022-04-06 01:51 | Outpatient (CLI) | payer BC, SELFPAY ==
[2022-04-06 08:39] LABS: CREATININE 0.7 mg/dL (0.55-1.02); Estimated GFR 95.32 (mL/min/1.73m2)
[2022-04-06] MEDS: Barium Sulfate 2% W/V-Berry Smoothie 450 ML BTL 900 ML PO (08:45)
[2022-04-06] MEDS: Omnipaque 350 MG/ML 500 ML BTL-Imaging package IJ (10:18)
--- NOTE | 2022-04-06 10:20 | DI.CT_ITS ---
Exam(s) CT ABDOMEN PELVIS W EXAM: CT ABDOMEN PELVIS W CLINICAL HISTORY: INCISIONAL HERNIA,K43.2 TECHNIQUE: Imaging Protocol: Axial computed tomography images with coronal and sagittal reformatted images were created and reviewed CONTRAST MATERIAL: Intravenous: Omnipaque 350 Contrast volume:100 mL Oral: Yes COMPARISON: CT CT CHEST/ABD/PEL W from 11/05/2018 FINDINGS: ABDOMEN: Lung Bases: No focal consolidating infiltrates. Coronary artery calcifications are present. Liver: Normal density. No measurable mass. Portal, Superior Mesenteric, and Splenic Veins: Unremarkable. Gallbladder and Biliary Tract: No radiodense calculus or dilation. Pancreas: Normal density, no abnormal calcifications or inflammatory process. Spleen: Normal. Adrenals: There is a stable 1.5 x 1.9 cm left adrenal nodule. The right adrenal gland is unremarkabl e. Kidneys: Normal size, contour and axis. No radiodense stones or obstructive uropathy. There are tiny hypodensities in the kidneys. They are too small for further characterization but likely reflect sma ll cysts. Left parapelvic cysts are present. No follow-up is recommended. Abdominal Aorta: Abdominal portion non-dilated. Atherosclerosis is present. Bowel: There is diverticulosis seen in the transverse descending and sigmoid colons but no evidence o f acute diverticulitis. There is no evidence of bowel obstruction. There is a large midline anterio r abdominal wall defect containing unremarkable loops of transverse colon and small bowel. No eviden ce of incarceration or obstruction is seen. There are 3 smaller fat containing midline anterior abdo snow wall hernia inferior to this large hernia. No evidence of appendicitis. The previously mentio guerda nodule in the ascending colon is not definitely visualized on this examination. However barium e nema or colonoscopy is recommended for further evaluation. Peritoneal Cavity: No ascites, collection or mesenteric inflammatory response. No free air. Lymph Nodes: Within normal limits. Bones: Within normal limits for the patient's age. There has been no change in the T11 compression d eformity. Soft Tissues: Please see above under bowel. PELVIS: Bladder: Symmetric distention, no gross wall thickening. Reproductive Organs: Status post hysterectomy. Lymph Nodes: Within normal limits. Bones: Within normal limits for the patient's age. IMPRESSION: 1. Interval development of several anterior abdominal wall hernias. The largest contains loops seen of both transverse colon and small bowel. No evidence of incarceration/obstruction. The smaller mor e inferior hernia are fat containing. 2. 1.5 x 1.9 cm left adrenal nodule. This may represent an adrenal adenoma. Confirmation should be obtained with a pre and postcontrast MRI of the abdomen. 3. The previously 9 davila and nodule in the ascending colon is not definitely visualized on this curre nt examination. However, barium enema or colonoscopy is recommended for further evaluation. RADIATION DOSE DELIVERED: Total DLP DATA REPOSITORY: All CT scans at this facility are submitted to the National Radiology Data Registry (NRDR) Dose Index Registry (DIR) with the [employer] ([employer]). RADIATION OPTIMIZATION: All CT scans at this facility use at least one of these dose optimization te chniques: automated exposure control; mA and/or kV adjustment per patient size (includes targeted exa ms where dose is matched to clinical indication); or iterative reconstruction.
== END ==
PROVIDERS: PCP Internal Medicine; Visit Provider Surgery
DX: K43.2 Incisional hernia without obstruction or gangrene (principal); Z01.812 Encounter for preprocedural laboratory examination; D35.02 Benign neoplasm of left adrenal gland; N28.89 Other specified disorders of kidney and ureter; Z90.710 Acquired absence of both cervix and uterus; K43.9 Ventral hernia without obstruction or gangrene
CPT/HCPCS: 74177; 82565

== ENCOUNTER 2022-05-17 02:14 | Outpatient (CLI) | payer BC, MEDICARE, SELFPAY ==
--- NOTE | 2022-05-17 07:45 | DI.MRI_ITS ---
Exam(s) MR ABDOMEN WO/W EXAM: MR ABDOMEN WO/W CLINICAL HISTORY: adrenal mass,f/u abnl ct, e27.8 TECHNIQUE: Multiplanar multisequence MRI was performed with both pre and post contrast infused seque nces. Contrast injected sequences were performed following IV injection of 20 cc of Dotarem. Chemical shift in and out of phase imaging of the adrenal glands was performed. COMPARISON: CT CT CHEST/ABD/PEL W from 11/05/[address] ABDOMEN PELVIS W from 04/06/2022 FINDINGS: VISUALIZED LUNG BASES: No pleural effusions evident. There is no ascites evident. LIVER: Liver size is normal. There are no discrete focal hepatic lesions identified. There is an el ement of a hepatic steatosis noted on chemical shift imaging sequences. BILIARY: There is no obvious gallbladder pathology. The CBD is not dilated. PANCREAS: There is no evidence of pancreatic mass nor dilatation of the pancreatic duct. SPLEEN: Spleen is not enlarged and there are no intrasplenic lesions.Splenic and portal veins are pat ent ADRENALS: Right adrenal gland unremarkable. Previously described nodule in the left adrenal gland se en on the recent prior CT scans remain stable in size. It exhibits some signal loss on out of phase chemical shift sequence sequence compared to the in phase sequence consistent with probable benign ad enoma. KIDNEYS: Kidneys exhibit normal size. The multiple parapelvic cysts in left kidney and a few tiny co rtical cysts in the right kidney.No ominous solid renal masses evident. No hydronephrosis. No hydro ureter. ABDOMINAL AORTA: Not enlarged and there is no significant para-aortic adenopathy. ANTERIOR ABDOMINAL WALL/GI: There is a large midline anterior abdominal hernia with a wide neck and c ontaining multiple bowel loops, seen on the recent CT scan. No evidence of bowel obstruction.Is no e vidence of obvious bowel obstruction. OSSEOUS: There are no lytic osseous lesions in the field of view of this study. IMPRESSION: 1. The nodule in the left adrenal gland exhibits decreasing signal on out of phase chemical shift seq uence when compared to in phase and therefore is most probably consistent with a benign adenoma. In addition, it has not increased appreciably in size from a prior CT scan performed October 2018 which is further evidence that it is benign finding. The opposite-right adrenal gland is unremarkable. 2. Benign cortical cysts and parapelvic cysts noted in the kidneys. 3. Large anterior abdominal hernia again noted which contains multiple nonobstructed bowel loops. DATA REPOSITORY:
[2022-05-17] MEDS: Normal Saline - Diluent 50 ML VIAL 25 ML IJ (14:19)
[2022-05-17] MEDS: Gadoterate meglumine 20 ML VIAL IVP (14:20)
== END 2022-05-17 02:34 ==
PROVIDERS: PCP Internal Medicine; Visit Provider Surgery
DX: E27.8 Other specified disorders of adrenal gland (principal); K46.9 Unspecified abdominal hernia without obstruction or gangrene; N28.1 Cyst of kidney, acquired
CPT/HCPCS: 74183

== ENCOUNTER → 2022-06-21 09:51 | Outpatient (BNVA) | payer BC, MEDICARE, SELFPAY | PROVIDERS: PCP Internal Medicine; Referring Provider Internal Medicine; Visit Provider Surgery | DX: K46.9 Unspecified abdominal hernia without obstruction or gangrene (principal); K43.2 Incisional hernia without obstruction or gangrene; K57.90 Diverticulosis of intestine, part unspecified, without perforation or abscess without bleeding; K58.9 Irritable bowel syndrome, unspecified; E66.9 Obesity, unspecified | CPT/HCPCS: 99213 ==

== ENCOUNTER 2023-06-19 18:25 | Outpatient (REF) | payer BC, MEDICARE, SELFPAY ==
[2023-06-19 19:35] LABS: Anion Gap 11.7 mmol/L (3-11); BUN 25 mg/dL (7-18); CO2 25.3 mmol/L (21.0-32.0); CREATININE 0.9 mg/dL (0.55-1.02); Calcium 9.6 mg/dL (8.5-10.1); Chloride 102 mmol/L (98-107); Estimated GFR 70.07 (mL/min/1.73m2); Glucose 115 mg/dL (74-106); Potassium 3.8 mmol/L (3.5-5.1); Sodium 139 mmol/L (136-145)
== END 2023-06-19 18:26 | disposition home or self-care (01) ==
LOC: NCHCN 18:25
PROVIDERS: PCP Internal Medicine; Visit Provider Nurse Practitioner Family
DX: I10 Essential (primary) hypertension (principal)
CPT/HCPCS: 80048

== ENCOUNTER 2025-02-03 15:42 | Outpatient (REF) | payer BC, MEDICARE, SELFPAY ==
[2025-02-03 20:02] LABS: ALT 36 U/L (14-59); AST 24 U/L (15-37); Albumin 4.0 g/dL (3.4-5.0); Alkaline Phosphatase 98 U/L (46-116); Anion Gap 8.3 mmol/L (3-11); BUN 18 mg/dL (7-18); Bilirubin, Total 0.9 mg/dL (0.2-1.0); CO2 25.7 mmol/L (21.0-32.0); Calcium 9.9 mg/dL (8.5-10.1); Chloride 104 mmol/L (98-107); Estimated GFR 93.56 (mL/min/1.73m2); Glucose 108 mg/dL (74-106); Potassium 4.1 mmol/L (3.5-5.1); Sodium 138 mmol/L (136-145); TSH 1.82 uIU/mL (0.36-3.74); Total Protein 7.3 g/dL (6.4-8.2)
[2025-02-04 15:50] LABS: Calculated LDL 157 mg/dL (<100); Cholesterol 238 mg/dL (<200); HDL Cholesterol 45 mg/dL (>or=50); Triglyceride 181 mg/dL (<150)
== END 2025-02-03 15:43 | disposition home or self-care (01) ==
LOC: NCHCN 15:42
PROVIDERS: PCP Internal Medicine; Visit Provider Nurse Practitioner Family
DX: I10 Essential (primary) hypertension (principal); E03.9 Hypothyroidism, unspecified; E78.5 Hyperlipidemia, unspecified
CPT/HCPCS: 80053; 80061; 84443